=== PATIENT | male | born 1965 | race African-American/Black ===

== ENCOUNTER 2017-08-30 12:04 | Emergency (ER) | payer MEDICAID ==
[~2017-08-30] VITALS: Ht 167.6 cm; Wt 71.7 kg
[~2017-08-30 12:04] MED LIST: BACTRIM DS 8001 TA1 PO; BENADRYL 25MG C25 MG PO; CHOLESTEROL MED PO; DICLOFENAC 50MG50 MG PO; HYDROCHLOROTHIA25 M1 PO; K + POTASSIUM20 MEQ PO; LISINOPRIL 20MG20 MG PO; LISINOPRIL HCTZ1 TAB PO; LOVASTATIN20 MG PO; MEDROL 4MG. DOSE4 MG PO; MOBIC7.5 MG PO; MOTRIN800 MG PO; Mobic7.5 MG PO; PREDNISONE 10MG10 MG PO; TOBREX OPTH SOLU5 ML OP; ULTRAM 50 MG TA50 MG PO; VISTARIL25 M1 PO; ZITHROMAX Z PA250 MG PO; [UNRECOGNIZED DRUG - REMARK] PO
--- OUTSIDE RECORDS SUMMARY | 2017-08-30 12:21 | External Medical Summary Rpt | CCD ---
Author Author , [facility] Organization [facility] Address Unknown Phone Care Team Providers Care Bit Tapper Name Role Phone A Jasmyne GRAJEDA MD PSC, A Unavailable Unavailable Jasmyne GRAJEDA MD PSC YOU BRO, YOU Unavailable Unavailable BRO YOU BRO, YOU Unavailable Unavailable BRO BEINEKE JESSICA, BEINEKE Unavailable Unavailable JESSICA VANNESA L, VANNESA L Unavailable Unavailable BESSON, BESSON Unavailable Unavailable CIRILO YOU MD, Unavailable Unavailable CIRILO YOU MD SUZIE MEAGAN, SUZIE Unavailable Unavailable MEAGAN JUANA ALAYNA, Unavailable Unavailable JUANA ALAYNA FALLIS MATTY, FALLIS Unavailable Unavailable MATTY FIELD AMB, FIELD AMB Unavailable Unavailable [facility], [facility] AM[facility] Unavailable Unavailable MUSE, M[facility] Unavailable Unavailable [facility] Un[facility] Un[facility] INC, [facility] Unavailable Unavailable HOSPITAL P, [facility], Unavailable Unavailable [facility] RADHA CORNELIUS MD, Unavailable Unavailable RADHA CORNELIUS MD [facility] Unavailable Unavailable IM[facility]ING [facility], [facility] KILPELA, KILPELA Unavailable Unavailable KILPELA JEA, KILPELA Unavailable Unavailable JEA KILPELA JEA, KILPELA Unavailable Unavailable [facility] PRICE SHARIFA, PRICE Unavailable Unavailable SHARIFA OLIVIA, OLIVIA Unavailable Unavailable OLIVIA BRYCE, OLIVIA BRYCE Unavailable Unavailable [facility] PAVEZ, PAVEZ Unavailable Unavailable [facility], Unavailable Unavailable [facility], Unavailable Unavailable [facility] SADEK MOH, SADEK MOH Unavailable Unavailable SCIFRES ANG, SCIFRES Unavailable Unavailable ANG SCIFRES ANG, SCIFRES Unavailable Unavailable ANG [facility] Unavailable Unavailable [facility], [facility] Unavailable Unavailable [facility], [facility] SOTINGEANU, Unavailable Unavailable SOTINGEANU SOTINGEANU JESSICA, Unavailable Unavailable SOTINGEANU JESSICA [facility] KIAN, Unavailable Unavailable KIAN MARIANNA TOBIAS, MARIANNA TOBIAS Unavailable Unavailable Rashaun Julian Unavailable Unavailable III Rashaun MARINO III MD Purpose Continuity of Care Document - 01-29-2013 through 2016 Problems Code Diagnosis DOS Provider Status [id number] PAIN IN 07-26-2017 [facility] [id number] PAIN IN 07-26-2017 [facility] G4733 OBSTRUCTIVE 07-07-2017 [facility] SLEEP HOME APNEA ADULT MEDICAL PEDIATRIC EQUIPME M1990 UNSPECIFIED 06-01-2017 A Jasmyne GRAJEDA MD [facility] OSTEOARTHRI TIS UNSPECIFIED SITE K76314 PAIN IN 04-21-2017 A Jasmyne GRAJEDA JOINTS OF PSC RIGHT HAND F43377 PAIN IN 04-21-2017 A Jasmyne GRAJEDA JOINTS KELSEY MARINO [facility] LEFT HAND Z6825 BODY MASS 04-21-2017 A Jasmyne GRAJEDA INDEX BMI PSC 25.0-25.9 ADULT E785 HYPERLIPIDE 02-24-2017 [facility] OLIVIA PHYSICIAN UNSPECIFIED GROUP I10 ESSENTIAL 02-24-2017 [facility] PRIMARY PHYSICIAN HYPERTENSIO GROUP N K219 GASTRO-ESOP 02-24-2017 [facility] H REFLUX PHYSICIAN DISEASE GROUP WITHOUT ESOPHAGITIS R0602 SHORTNESS 02-24-2017 [facility] OF BREATH PHYSICIAN GROUP R0683 SNORING 02-24-2017 [facility] R0789 OTHER CHEST 02-24-2017 [facility] PAIN PHYSICIAN GROUP R635 ABNORMAL 02-24-2017 [facility] WEIGHT GAIN PHYSICIAN GROUP Z8249 FAMILY HX 02-24-2017 [facility] ISCHEMIC PHYSICIAN HRT DZ OTH GROUP DZ CIRC SYSTEM R079 CHEST PAIN 02-21-2017 [facility] R9431 ABNORMAL 02-09-2017 [facility] IOGRAM INC V79029 OTHER LONG 02-03-2017 [facility] P DRUG THERAPY N390 URINARY 01-18-2017 A Jasmyne GRAJEDA TRACT PSC INFECTION SITE NOT SPECIFIED M6530 TRIGGER 05-05-2016 A Jasmyne GRAJEDA FINGER PSC UNSPECIFIED FINGER R3915 URGENCY OF 04-22-2016 A Jasmyne GRAJEDA URINATION PSC R42 DIZZINESS 04-22-2016 A Jasmyne QUIROZ PSC GIDDINESS J040 ACUTE 01-13-2016 A Jasmyne GRAJEDA LARYNGITIS [facility] R358 OTHER 01-13-2016 A Jasmyne GRAJEDA POLYURIA [facility] J209 ACUTE 01-10-2016 [facility] UNSPECIFIED INC J40 BRONCHITIS 01-10-2016 [facility] SPE[facility] ACUTE OR CHRONIC E780 PURE 09-29-2015 [facility] TEROLEMIA 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 F43076 ENCOUNTER 09-29-2015 [facility] PREPROCEDUR AL CARIOVASCUL AR EXAM H524 PRESBYOPIA 09-25-2015 SCIFRES ANG B070 PLANTAR 09-18-2015 [facility] MATTY WART T92912 PAIN IN 09-18-2015 [facility] MATTY RIGHT FOOT I890 LYMPHEDEMA 08-21-2015 [facility] MATTY NOT ELSEWHERE CLASSIFIED M2570 OSTEOPHYTE 08-21-2015 [facility]PEC[facility]IED [facility] JOINT INC R936 ABNORMAL 08-21-2015 [facility] IMAGING OF LIMBS I79048 CELLULITIS 08-20-2015 [facility] OF RIGHT PHYSICIANS, TOE PLLC R51749R UNS OPEN 08-20-2015 [facility] WOUND UNS PHYSICIANS, TOES PLLC W/DAMAGE NAIL INITIAL 4019 UNSPECIFIED 06-16-2015 [facility]SSENTIAL [facility] HYPERTENSIO INC N 4659 ACUTE URIS 06-16-2015 [facility]YSICIANS, UNSPECIFIED PLLC SITE 2113 BENIGN 03-12-2015 [place] [facility] 2352 NEOPLASM 03-12-2015 [facility] BEHAVIOR INC STOMACH INTEST&RECT 25419 OTHER 03-12-2015 [facility] DISORDER OF INTESTINES V7651 SPECIAL 03-12-2015 [facility] MALIGNANT NEOPLASMS COLON 60645 OSTEOARTHRO 02-04-2015 [facility] S[facility] UNSPEC MEDICAL WHETHER IMAGING ASS GEN/LOC LOWER LEG 08980 UNSPECIFIED 02-04-2015 [facility] ARTHROPATHY INC , LOWER LEG 93770 PAIN IN 02-04-2015 [facility] JOINT, MEDICAL LOWER LEG IMAGING ASS 24637 OTHER 12-29-2014 [facility] DISORDERS [facility] SYNOVIUM INC TENDON AND BURSA OTHER 7295 PAIN IN 12-29-2014 [facility] SOFT MEDICAL TISSUES OF IMAGING ASS LIMB 95855 CHEST PAIN 08-19-2014 [facility] UNSPECIFIED MEDICAL IMAGING ASS 64654 OTHER CHEST 08-19-2014 [facility] PH[facility] V148 PERSONAL 08-19-2014 [facility] ALLERGY [facility] P SPEC MEDICINAL AGTS 9597 INJURY 03-04-2014 [facility] AM[facility] OTHER&UNSPE CIFIED KNEE LEG ANKLE&FOOT 7354 OTHER 02-14-2014 [facility] 7812 ABNORMALITY 02-14-2014 [facility] OF GA[facility] HOME MEDICAL EQUIPME 69414 TRIGGER 02-08-2014 KILPEDOMINIQUE ALEJANDRAA FINGER 2724 OTHER AND 02-05-2014 [facility]ELD AMB UNSPECIFIED HYPERLIPIDE OLIVIA 76068 OTHER 02-05-2014 [facility] AM[facility] CONGENITAL DEFORMITY OF FEET OTHER 401.9 401.9 12-11-[address] [facility] 718.34 718.34 12-11-2013 [facility] RECUR [facility] [place] [address] RECURRENT 12-11-2013 [facility] DISLOCATION [facility] OF HAND INC JOINT 13924 SPRAIN AND 12-11-2013 YOU BRO STRAIN OF INTERPHALAN GEAL OF HAND 462 462 ACUTE 09-21-2013 [facility] PHARYNGITIS [facility] 729.5 729.5 PAIN 01-29-2013 [facility] IN LIMB [facility] H57.12 OCULAR PAIN, LEFT EYE M77.9 ENTHESOPATH Y, UNSPECIFIED R07.89 OTHER CHEST PAIN R07.9 CHEST PAIN, UNSPECIFIED Allergies, Adverse Reactions, Alerts Type Drug Allergy Adverse Reaction to Substance Substance Reaction Severity Codeine Unknown Unknown Medications Na ND Rx Da Fi Fi Am Da Di Ph RX Ph St me C No te ll ll ou ys ag ar # ys at rm s nt no ma ic us Or Da si cy ia de te s n re d LO 54 09 10 30 30 00 [place] Ac VA 45 -0 -0 .0 00 L- ti ST 80 9- 6- 00 07 MA ve AT 93 20 20 47 RT IN 71 17 17 60 6 68 PH 20 AR MA MG CY TA #5 BL 91 ET NA 42 09 10 60 30 00 [place] Ac KS 49 -1 -0 .0 00 L- ti OX 40 3- 6- 00 07 MA ve EN 40 20 20 49 RT 00 17 17 97 SO 1 04 PH DI AR UM MA CY DS #5 55 91 0 MG TA B LO 68 09 10 30 30 00 WA Ac SA 18 -1 -0 .0 00 L- ti RT 00 3- 6- 00 07 MA ve AN 21 20 20 48 RT -H [address] 9 66 PH Z AR 10 MA 0- CY 25 #5 MG 91 TA B ME 54 09 09 30 30 00 WA Ac LO 45 -0 -2 .0 00 L- ti XI 80 2- 9- 00 07 MA ve CA 96 20 20 50 RT M 41 17 17 31 15 6 88 PH AR MG MA CY TA BL #5 ET 91 OM 60 08 09 30 30 00 WA Ac EP 50 -2 -2 .0 00 L- ti RA 50 6- 2- 00 07 MA ve ZO 14 20 20 50 RT LE 60 17 17 [address] AR MA 40 CY MG #5 91 CA PS UL E LO 68 08 09 30 30 00 WI Ac SA 18 -1 -0 .0 00 L- ti RT 00 1- 8- 00 07 MA ve AN 21 20 20 48 RT -H [address] 9 66 PH Z AR 10 MA 0- CY 25 #5 MG 91 TA B LO 54 08 09 30 30 00 WI Ac VA 45 -1 -0 .0 00 L- ti ST 80 1- 8- 07 MA ve AT 93 20 20 47 RT IN 71 17 17 60 6 68 PH 20 AR MA MG CY TA #5 BL 91 ET ME 54 08 09 30 30 00 WI Ac LO 45 -0 -0 .0 00 L- ti XI 80 9- 1- 00 07 MA ve CA 96 20 20 50 RT M 41 17 17 31 15 6 88 PH AR MG MA CY TA BL #5 ET 91 DI 00 08 09 60 30 00 WI Ac CL 37 -0 -0 .0 00 L- ti OF 82 5- 1- 00 07 MA ve EN 47 20 20 49 RT AC 40 17 17 24 1 78 PH PO AR T MA 50 CY MG #5 91 TA BL ET OM 60 07 08 30 30 00 WI Ac EP 50 -2 -1 .0 00 L- ti RA 50 6- 8- 00 07 MA ve ZO 14 20 20 50 RT LE 60 17 17 [address] AR MA 40 CY MG #5 91 CA PS UL E NA 42 07 08 60 30 00 WI Ac KS 49 -1 -1 .0 00 L- ti OX 40 9- 1- 00 07 MA ve EN 40 20 20 49 RT 00 17 17 97 SO 1 04 PH DI AR UM MA CY DS #5 55 91 0 MG TA B LO 54 07 08 30 30 00 WA Ac VA 45 -1 -0 .0 00 L- ti ST 80 1- 4- 00 07 MA ve AT 93 20 20 47 RT IN 71 17 17 60 6 68 PH 20 AR MA MG CY TA #5 BL 91 ET LO 68 07 30 30 00 WA Ac SA 18 -1 -0 .0 00 L- ti RT 00 1- 4- 00 07 MA ve AN 21 20 20 48 RT -H [address] 9 66 PH Z AR 10 MA 0- CY 25 #5 MG 91 TA B OM 60 06 30 30 00 WI Ac EP 50 -2 -2 .0 00 L- ti RA 50 8- 1- 00 07 MA ve ZO 14 20 20 47 RT LE 60 17 [address] AR MA 40 CY MG #5 91 CA PS UL E LO 68 06 30 30 00 WI Ac SA 18 -1 -0 .0 00 L- ti RT 00 2- 7- 00 07 MA ve AN 21 20 20 48 RT -H [address] 9 66 PH Z AR 10 MA 0- CY 25 #5 MG 91 TA B LO 54 06 30 30 00 WI Ac VA 45 -0 -0 .0 00 L- ti ST 80 9- 7- 00 07 MA ve AT 93 20 20 47 RT IN 71 17 17 60 0 68 PH 20 AR MA MG CY TA #5 BL 91 ET DI 00 06 30 00 WI Ac CL 37 -0 -0 .0 00 L- ti OF 82 8- 7- 00 07 MA ve EN 47 20 20 49 RT AC 40 17 17 24 1 78 PH PO AR T MA 50 CY MG #5 91 TA BL ET OM 60 05 30 30 00 WI Ac EP 50 -2 -2 .0 00 L- ti RA 50 6- 3- 00 07 MA ve ZO 14 20 20 47 RT LE 60 17 [address] AR MA 40 CY MG #5 91 CA PS UL E LO 68 05 30 30 00 [place] Ac VA 18 -1 -0 .0 00 L- ti ST 00 2- 9- 00 07 MA ve AT 46 20 20 47 RT IN 80 17 17 60 7 68 PH 20 AR MA MG CY TA #5 BL 91 ET LO 68 05 30 30 00 WI Ac SA 18 -1 -0 .0 00 L- ti RT 00 2- 9- 00 07 MA ve AN 21 20 20 48 RT -H [address] 9 66 PH Z AR 10 MA 0- CY 25 #5 MG 91 TA B OM 60 04 05 30 30 00 WA Ac EP 50 -2 -2 .0 00 L- ti RA 50 9- 6- 00 07 MA ve ZO 14 20 20 47 RT LE 60 17 [address] AR MA 40 CY MG #5 91 CA PS UL E LO 68 04 05 30 30 00 WI Ac SA 18 -1 -1 .0 00 L- ti RT 00 3- 2- 00 07 MA ve AN 21 20 20 48 RT -H [address] 9 66 PH Z AR 10 MA 0- CY 25 #5 MG 91 TA B LO 54 04 05 30 30 00 WI Ac VA 45 -1 -0 .0 00 L- ti ST 80 1- 5- 07 MA ve AT 93 20 20 47 RT IN 71 17 17 60 0 68 PH 20 AR MA MG CY TA #5 BL 91 ET LO 00 03 04 30 30 00 WI Ac SA 78 -2 -2 .0 00 L- ti RT 15 9 07 MA ve AN 20 20 20 47 RT -H [address] 64 PH Z AR 10 MA 0- CY 12 .5 #5 91 MG TA B OM 60 03 04 30 30 00 WI Ac EP 50 -2 -2 .0 00 L- ti RA 50 9 1- 00 07 MA ve ZO 14 20 20 47 RT LE 60 17 [address] AR MA 40 CY MG #5 91 CA PS UL E LO 54 03 04 30 30 00 WI Ac VA 45 -1 -0 .0 00 L- ti ST 80 3 7- 00 07 MA ve AT 93 20 20 47 RT IN 71 17 17 60 0 68 PH 20 AR MA MG CY TA #5 BL 91 ET LI 54 03 04 30 30 00 WI Ac SI 45 -1 -0 .0 00 L- ti NO 80 3 7- 00 07 MA ve KS 99 20 20 47 RT IL 61 17 17 59 0 06 PH 20 AR MA MG CY TA #5 BL 91 ET DORANTES 65 03 03 20 10 00 WI Ac LF 86 -0 -3 .0 00 L- ti AM 20 3- 1- 00 07 MA ve ET 42 20 20 47 RT HO 00 17 17 42 XA 5 04 PH ZO AR LE MA -T CY MP #5 DS 91 TA BL ET Vital Signs 01-28-2014 14:29 Name Value Interpretat Reference Comment ion Range BP 66 mm[Hg] Diastolic BP Systolic 102 mm[Hg] Heart 70 /min Rate/Pulse O2% 99 % Respiratory 18 /min Rate 12-11-2013 13:17 Name Value Interpretat Reference Comment ion Range BP 70 mm[Hg] Diastolic BP Systolic 111 mm[Hg] Heart 93 /min Rate/Pulse O2% 96 % Respiratory 16 /min Rate 09-21-2013 13:41 Name Value Interpretat Reference Comment ion Range BP 96 mm[Hg] Diastolic BP Systolic 142 mm[Hg] Heart 91 /min Rate/Pulse O2% 98 % Respiratory 20 /min Rate 01-29-2013 16:56 Name Value Interpretat Reference Comment ion Range Body 98.4 [degF] Temperature BP 73 mm[Hg] Diastolic BP Systolic 113 mm[Hg] Heart 91 /min Rate/Pulse O2% 99 % Respiratory 20 /min Rate 01-29-2013 16:30 Name Value Interpretat Reference Comment ion Range BP 65 mm[Hg] Diastolic BP Systolic 110 mm[Hg] Heart 99 /min Rate/Pulse O2% 95 % Respiratory 20 /min Rate Results Labs Lab Lab Date Result Refere Interp Status Commen Order Detail nces retati t Range on STREP SCREEN (RAPID) (09-21-2013 13:10) STREP NEGATIV complet SCREEN 013 E ed (RAPID) 13:10 Procedures Procedure DOS Code Location Performer Comment COLLECTIO 94347 Abelardo C MICHA N VENOUS 7 NICCI MARINO BLOOD PSC VENIPUNCT URE RADEX 88394 [facility] HAND 7 [facility] MINIMUM 3 INC INC VIEWS CONTINUOU E0601 M[facility]IAM PINEDA S 7 HOME HOME POSITIVE MEDICAL MEDICAL AIRWAY EQUIPME EQUIPME PRESSURE DEVICE CONTINUOU E0601 M[facility]IAM PINEDA S 7 HOME HOME POSITIVE MEDICAL MEDICAL AIRWAY EQUIPME EQUIPME PRESSURE DEVICE CONTINUOU E0601 MIRIAM PINEDA S 7 HOME HOME POSITIVE MEDICAL MEDICAL AIRWAY EQUIPME EQUIPME PRESSURE DEVICE CONTINUOU E0601 MIRIAM PINEDA S 7 HOME HOME POSITIVE MEDICAL MEDICAL AIRWAY EQUIPME EQUIPME PRESSURE DEVICE NASL A7034 M[facility]IAM PINEDA INTRFCE 7 HOME HOME POS ARWAY MEDICAL MEDICAL PRSS EQUIPME EQUIPME DEVC W/WO HEAD STRAP POLYSOM 91547 [facility] PAVEZ 6/>YRS 7 PHYSICIAN SLEEP 4/> S GROUP ADDL MARGE ATTND CV STRS 29004 [facility] TST 7 [facility] XERS&/OR INC INC RX CONT ECG TRCG ONLY ECHO 97904 [facility] TTHRC R-T 7 [facility] 2D INC INC W/WOM-MOD E COMPL SPEC&COLR D MYOCARDIA 77898 [facility] L SPECT 7 [facility] H[facility] MULTIPLE INC INC STUDIES UNCLASSIF J3490 [facility] IED DRUGS 7 [facility] INC INC LIPID 53755 [facility] PANEL 7 [facility] [place] [address] [facility] FREE 7 [facility] [place] [address] [facility] THYROID 7 [facility] STIMULATI INC INC NG HORMONE TSH COLLECTIO 98791 [facility] N VENOUS 7 [facility] BLOOD INC INC VENIPUNCT URE BASIC 02394 [facility] METABOLIC 7 [facility] PANEL INC INC CALCIUM TOTAL HEPATIC 12856 [facility] FUNCTION 7 [facility] PANEL INC INC ECG 88332 [facility] ROUTINE 7 [facility] ECG INC INC W/LEAST 12 LDS TRCG ONLY W/O I&R ECG 79781 [facility] ROUTINE 7 [facility] ECG INC INC W/LEAST 12 LDS TRCG ONLY W/O I&R COMPREHEN 03569 [facility] SIVE 7 [facility] METABOLIC INC INC PANEL ECG 94004 MAR[facility] COTA ROUTINE 7 [facility] W/LEAST P 12 LDS I&R ONLY CREATINE 70830 [facility] KINASE 7 [facility] H[facility] TOTAL INC INC CREATINE 16980 [facility] KINASE MB 7 [facility] [place] [address] [facility] TROPONIN 7 [facility] QUANTITAT INC INC KURT BLOOD 53554 [facility] COUNT 7 [facility] COMPLETE INC INC AUTO&AUTO DIFRNTL WBC RADIOLOGI 76237 [facility] C EXAM 7 [facility] CHEST 2 INC INC VIEWS FRONTAL&L ATERAL SUSCEPTIB 14636 [facility] LTY STDY 7 [facility] ANTIMICRB INC INC IAL MICRO/AGA R DILUTJ URNLS DIP 14002 [facility] 7 [facility] STICK/TAB INC INC LET RGNT AUTO W/O MICROSCOP Y CULTURE 39177 [facility] BACTERIAL 7 [facility] INC INC QUANTTATI VE COLONY COUNT URINE CULTURE 42213 [facility] BCT 7 [facility] ISOL&PRSM INC INC PTV ID ISOLATE EA URINE URINLS 00198 A C KILPELA DIP 6 NICCI MARINO JEA STICK/TAB PSC LET REAGNT NON-AUTO MICRSCPY LIPID 71029 A Jasmyne BAKER BRYCE PANEL 6 NICCI MARINO PSC HEMOGLOBI 83815 A Jasmyne BAKER BRYCE N 6 NICCI MARINO GLYCOSYLA PSC LORIE A1C COLLECTIO 20647 A Jasmyne WU N VENOUS 6 NICCI MRAINO BLOOD PSC VENIPUNCT URE BLOOD 77705 A Jasmyne BAKER BRYCE COUNT 5 NICCI MARINO COMPLETE PSC AUTO&AUTO DIFRNTL WBC COMPREHEN 15415 [facility] 5 DIAGNOSTI DIAGNOSTI METABOLIC CS CS PANEL OPHTH 01445 [facility] 5 ANG ANG XM&EVAL COMPRHNSV ESTAB PT 1/> DESTRUCTI 54716 [facility] SUZIE ON BENIGN 5 MATTY MEAGAN LESIONS 15/> DESTRUCTI 82624 [facility] SUZIE ON BENIGN 5 MATTY MEAGAN LESIONS 15/> RADEX 10334 [facility] FOOT 5 [facility] COMPLETE INC INC MINIMUM 3 [place] [address] [facility] STREPTOCO 5 [facility] CCUS INC INC GROUP A CUL BACT 98780 [facility] XCPT 5 [facility] URINE INC INC BLOOD/[place] [address] [facility] 5 [facility] SHARIFA PATHOLOGY GROSS&ELLEN ROSCOPIC EXAM COLONOSCO 08724 [facility] PY 5 [facility] W/BIOPSY INC INC SINGLE/MU LTIPLE RADIOLOGI 30002 [facility] JUANA C 5 MEDICAL ALAYNA EXAMINATI IMAGING ON KNEE 3 ASS VIEWS RADEX 86086 [facility] J[facility] HAND 5 MEDICAL ALAYNA MINIMUM 3 IMAGING VIEWS ASS BLOOD 79776 [facility] COUNT 4 [facility] COMPLETE INC INC AUTO&AUTO DIFRNTL WBC RADIOLOGI 54729 [facility] BEINEKE C EXAM 4 MEDICAL JESSICA CHEST 2 IMAGING VIEWS ASS FRONTAL&[place] [address] [facility] TROPONIN 4 [facility] QUANTITAT INC INC KURT COMPREHEN 27787 [facility] B[facility] SIVE 4 [facility] METABOLIC INC INC PANEL ECG 72011 [facility] ROUTINE 4 [facility] ECG INC INC W/LEAST 12 LDS TRCG ONLY W/O I&R ECG 76476 [facility] ROUTINE 4 LUCY ECG EMERGENCY W/LEAST PHYS 12 LDS I&R ONLY CANE INCL E0100 MIRIAM CORLEYRELL CANES 4 HOME HOME ALL MEDICAL MEDICAL MATERIAL EQUIPME EQUIPME ADJUSTBLE /FIX W/TIP RADEX 96460 [facility] HAND 4 [facility] MINIMUM 3 INC INC VIEWS Encounters Encounter Start End Date Code Location Performer Type Date [facility] MARIAM Long 7 7 [facility] OUTPATIEN INC T OFFICE 38535 A C MICHA OUTPATIEN 7 7 NICCI MARINO T VISIT PSC 15 MINUTES OFFICE 83643 A C MARIAELENA OUTPATIEN 7 7 NICCI MARINO T VISIT PSC 15 MINUTES OFFICE 66586 A Jasmyne FERRELL OUTMARYCRUZ 7 7 NICCI MARINO T VISIT PSC 15 MINUTES OFFICE 56322 A Jasmyne BAKER OUTPALEN 7 7 NICCI MARINO T VISIT PSC 15 MINUTES OFFICE 52459 A C OLIVIA OUTPATIEN 7 7 NICCI MARINO T VISIT PSC 15 MINUTES OFFICE 72815 [facility] SAL GUTIERREZ 7 7 PHYSICIAN A T VISIT GROUP 25 MINUTES HOSPITAL [facility] - 7 7 [facility] OUTPATIEN INC T [facility]OSPITAL [facility] - 7 7 [facility] OUTPATIEN INC T [facility]OSPITAL [facility] - 7 7 [facility] OUTPATIEN INC T EMERGENCY 79299 [facility] 7 7 MEM [facility] DEPARTMEN INC T VISIT MODERATE SEVERITY HOSPITAL [facility] - 7 7 [facility] OUTPATIEN INC T EMERGENCY 59012 JO[facility] REYNOLDS DEPT 7 7 PHYSICIAN U VISIT S, [facility] HIGH SEVERITY& THREAT FUNCJ OFFICE 04562 A Jasmyne GUTIERREZ 7 7 NICCI MARINO T VISIT PSC 15 MINUTES HOSPITAL [facility] - 7 7 [facility] OUTPATIEN INC T OFFICE 21811 MARIAM GUTIERREZ 7 7 MEM HOS[facility] T VISIT 5 INC MINUTES OFFICE 74541 A C MARIAELENA OUTPATIEN 6 6 NICCI MARTINO T VISIT PSC 15 MINUTES OFFICE 65579 A C MARIAELENA OUTPATIALONDRA 6 6 NICCI MARTINO T VISIT PSC 15 MINUTES OFFICE 23842 A C OLIVIA WU OUTPATIEN 6 6 NICCI MARINO T VISIT PSC 25 MINUTES EMERGENCY 83072 [facility] 6 6 [facility] DEPARTMEN INC T VISIT LIMITED/M INOR PROB EMERGENCY 61901 JOSE YANCEY [facility] 6 6 PHYSICIAN DEPARTMEN S, [facility] T VISIT MODERATE SEVERITY HOSPITAL MAR[facility] - 6 6 [facility] OUTPATIEN INC T OFFICE 60546 A C OLIVIA BRYCE OUTPATIEN 5 5 NICCI MARINO T VISIT PSC 25 MINUTES OFFICE 33877 LORI LARSEN OUTPATIEN 5 5 MATTY MEAGAN T NEW 30 MINUTES HOSPITAL [facility] - 5 5 [facility] OUTPATIEN INC T EMERGENCY 24965 JOSE REYNOLDS 5 5 PHYSICIAN [facility], [facility] T VISIT MODERATE SEVERITY EMERGENCY 98269 [facility] 5 5 MEM [facility] DEPARTMEN [facility] T VISIT LOW/MODER SEVERITY HOSPITAL [facility] - 5 5 [facility] OUTPATIEN [facility] T EMERGENCY 18696 JOSE Huffman 5 5 PHYSICIAN [facility], [facility] T VISIT MODERATE SEVERITY HOSPITAL MRAIAM - 5 5 [facility] OUTPATIEN INC T HOSPITAL [facility] - 5 5 [facility] OUTPATIEN [facility] OFFICE 45366 Abelardo WU OUTPATIEN 5 5 NICCI MARINO T VISIT PSC 25 MINUTES HOSPITAL [facility] - 5 5 [facility] OUTPATIEN INC T EMERGENCY 82094 [facility] 5 5 [facility] LOW/MODER SEVERITY EMERGENCY 47849 [facility] 4 4 [facility] T VISIT MODERATE SEVERITY [facility]OSP[facility] - 4 4 [facility] T EMERGENCY 25377 [facility] DEPT 4 4 LUCY VISIT EMERGENCY HIGH PHYS SEVERITY& THREAT FUN OFFICE 35916 FIELD AMB FIELD AMB OUTPATIEN 4 4 T VISIT 15 MINUTES OFFICE 08803 KILPELA KILPELA OUTPATIEN 4 4 GUNNER ALJEANDRAAbelardo T VISIT 10 MINUTES OFFICE 30039 FIELD AMB FIELD AMB OUTPATIEN 4 4 T NEW 45 MINUTES Emergency GIO YOU MD (ER) 4 13:38 4 14:29 [facility] EMERGENCY 32409 BANNER 4 4 [facility] T VISIT MODERATE SEVERITY HOSPITAL MARIAM - 4 4 [facility] OUTPATIEN INC T EMERGENCY 91511 MARIAM 4 4 [facility] DEPARTMEN INC T VISIT LOW/MODER SEVERITY Emergency GIO Julian (ER) 3 13:09 3 13:42 [facility] Rashaun Mello Emergency GIO CORNELIUS MD (ER) 3 15:52 3 17:00 [facility]
--- OUTSIDE RECORDS SUMMARY | 2017-08-30 12:21 | External Medical Summary Rpt | CCD ---
Author Author , [facility] Organization [facility] Address Unknown Phone Care Team Providers Care Security Checker Name Role Phone A Jasmyne GRAJEDA MD [...] Unavailable Unavailable INC, [facility] Unavailable Unavailable HOSPITAL P, [facility], Unavailable Unavailable [facility] RADHA CORNELIUS MD, Unavailable Unavailable RADHA CORNELIUS MD [facility] Unavailable Unavailable [facility], [facility] KILPELA, KILPELA Unavailable Unavailable KILPELA JEA, KILPELA Unavailable Unavailable JEA KILPELA JEA, KILPELA Unavailable Unavailable [facility] PRICE SHARIFA, PRICE Unavailable Unavailable SHARIFA OLIVIA, OLIVIA Unavailable Unavailable OLIVIA BRYCE, OLIVIA BRYCE Unavailable Unavailable [facility], [facility] [...] SOTINGEANU SOTINGEANU JESSICA, Unavailable Unavailable SOTINGEANU JESSICA [facility] Unavailable Unavailable [facility], [facility] KIAN, Unavailable Unavailable KIAN MARIANNA TOBIAS, MARIANNA TOBIAS Unavailable Unavailable Rashaun Julian Unavailable Unavailable III Rashaun MARINO III MD Purpose Continuity of Care Document - 01-29-2013 through 2016 Problems Code Diagnosis DOS Provider Status [id number] PAIN IN 07-26-2017 [facility] [id number] PAIN IN 07-26-2017 [facility] G4733 OBSTRUCTIVE 07-07-2017 [facility] SLEEP HOME APNEA ADULT MEDICAL PEDIATRIC EQUIPME M1990 UNSPECIFIED 06-01-2017 A Jasmyne GRAJEDA MD [facility] OSTEOARTHRI TIS UNSPECIFIED SITE Y86024 PAIN IN 04-21-2017 A Jasmyne GRAJEDA JOINTS OF PSC RIGHT HAND P34886 PAIN IN 04-21-2017 A Jasmyne GRAJEDA JOINTS KELSEY MARINO [facility] LEFT HAND Z6825 BODY MASS 04-21-2017 A Jasmyne GRAJEDA INDEX BMI PSC 25.0-25.9 ADULT E785 HYPERLIPIDE 02-24-2017 [facility] OLIVIA PHYSICIAN UNSPECIFIED GROUP I10 ESSENTIAL 02-24-2017 [facility] PRIMARY PHYSICIAN HYPERTENSIO GROUP N K219 GASTRO-ESOP 02-24-2017 [facility] H REFLUX PHYSICIAN DISEASE GROUP WITHOUT ESOPHAGITIS R0602 SHORTNESS 02-24-2017 [facility] OF BREATH PHYSICIAN GROUP R0683 SNORING 02-24-2017 [facility] R0789 OTHER CHEST 02-24-2017 [facility] PAIN PHYSICIAN GROUP R635 ABNORMAL 02-24-2017 [facility] WEIGHT GAIN PHYSICIAN GROUP Z8249 FAMILY HX 02-24-2017 [facility] ISCHEMIC PHYSICIAN HRT DZ OTH GROUP DZ CIRC SYSTEM R079 CHEST PAIN 02-21-2017 [facility] R9431 ABNORMAL 02-09-2017 [facility] ELECTROCARD [facility] IOGRAM INC G67717 OTHER LONG 02-03-2017 [facility] P DRUG THERAPY N390 URINARY 01-18-2017 A Jasmyne GRAJEDA TRACT PSC INFECTION SITE NOT SPECIFIED M6530 TRIGGER 05-05-2016 A Jasmyne GRAJEDA FINGER PSC UNSPECIFIED FINGER R3915 URGENCY OF 04-22-2016 A Jasmyne GRAJEDA URINATION PSC R42 DIZZINESS 04-22-2016 A Jasmyne QUIROZ PSC GIDDINESS J040 ACUTE 01-13-2016 A Jasmyne GRAJEDA LARYNGITIS [facility] R358 OTHER 01-13-2016 A Jasmyne GRAJEDA POLYURIA [facility] J209 ACUTE 01-10-2016 [facility]ONCHITIS [facility] UNSPECIFIED INC J40 BRONCHITIS 01-10-2016 [facility] NOT PHYSICIANS, SPECIFIED PLLC ACUTE OR CHRONIC E780 PURE 09-29-2015 [facility]PERCHOLES [facility]ST[facility] TEROLEMIA 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 N58041 ENCOUNTER 09-29-2015 [facility] FOR [facility] PREPROCEDUR AL CARIOVASCUL AR EXAM H524 PRESBYOPIA 09-25-2015 [facility] ANG B070 PLANTAR 09-18-2015 [facility] M[facility] WART Z82893 PAIN IN 09-18-2015 [facility] RIGHT FOOT I890 LYMPHEDEMA 08-21-2015 [facility] MATTY NOT ELSEWHERE CLASSIFIED M2570 OSTEOPHYTE 08-21-2015 [facility]NSPECIFIED [facility] JOINT INC R936 ABNORMAL 08-21-2015 [place] [facility] IM[facility]ING ASS IMAGING OF LIMBS N28383 CELLULITIS 08-20-2015 [facility] OF RIGHT PHYSICIANS, TOE PLLC [id number] UNS OPEN 08-20-2015 [facility] WOUND UNS PHYSICIANS, TOES PLLC W/DAMAGE NAIL INITIAL 4019 UNSPECIFIED 06-16-2015 [facility] ESSENTIAL [facility] HYPERTENSIO INC N 4659 ACUTE URIS 06-16-2015 [facility] OF PHYSICIANS, UNSPECIFIED PLLC SITE 2113 BENIGN 03-12-2015 [facility] NE[facility]M OF SERV COLON [facility] 2352 NEOPLASM 03-12-2015 [facility] BEHAVIOR INC STOMACH INTEST&RECT 09891 OTHER 03-12-2015 [facility] DISORDER OF INTESTINES V7651 SPECIAL 03-12-2015 [place] [facility] MALIGNANT NEOPLASMS COLON 18928 OSTEOARTHRO 02-04-2015 [place] [facility] UNSPEC MEDICAL WHETHER IMAGING ASS GEN/LOC LOWER LEG 95767 UNSPECIFIED 02-04-2015 [facility] ARTHROPATHY INC , LOWER LEG 06338 PAIN IN 02-04-2015 [place] JOINT, MEDICAL LOWER LEG IMAGING ASS 98064 OTHER 12-29-2014 [facility] DISORDERS [facility] SYNOVIUM INC TENDON AND BURSA OTHER 7295 PAIN IN 12-29-2014 [place] SOFT MEDICAL TISSUES OF IMAGING ASS LIMB 76629 CHEST PAIN 08-19-2014 [place] UNSPECIFIED MEDICAL IMAGING ASS 63512 OTHER CHEST 08-19-2014 [facility] V148 PERSONAL 08-19-2014 [facility] HISTORY [facility] ALLERGY [facility] P SPEC MEDICINAL AGTS 9597 INJURY 03-04-2014 FIELD AMB OTHER&UNSPE CIFIED KNEE LEG ANKLE&FOOT 7354 OTHER 02-14-2014 [facility] MEDICAL EQUIPME 7812 ABNORMALITY 02-14-2014 [facility] OF GAIT HOME MEDICAL EQUIPME 76401 TRIGGER 02-08-2014 KILPEDOMINIQUE ALEJANDRAA FINGER 2724 OTHER AND 02-05-2014 FIELD AMB UNSPECIFIED HYPERLIPIDE OLIVIA 69021 OTHER 02-05-2014 [facility] AM[facility] CONGENITAL DEFORMITY OF FEET OTHER 401.9 401.9 12-11-2013 [place] HYPERTENSIO [facility] 718.34 718.34 12-11-2013 [place] [facility]UR [facility] [place] [address] RECURRENT 12-11-2013 [facility] DISLOCATION [facility] OF HAND INC JOINT 93465 SPRAIN AND 12-11-2013 [facility]O STRAIN OF INTERPHALAN GEAL OF HAND 462 462 ACUTE 09-21-2013 [place] PHARYNGITIS [facility] 729.5 729.5 PAIN 01-29-2013 [place] IN LIMB [facility] H57.12 OCULAR PAIN, LEFT EYE M77.9 ENTHESOPATH [...] 09 10 60 30 00 [place] Ac TX 49 -1 -0 .0 00 L- ti [...] LO 68 08 09 30 30 00 ME Ac SA 18 -1 -0 .0 00 L- ti RT 00 1- 8- 00 07 MA ve AN 21 20 20 48 RT -H [address] 9 66 PH Z AR 10 MA 0- CY 25 #5 MG 91 TA B LO 54 08 09 30 30 00 ME Ac VA 45 -1 -0 .0 00 L- ti ST 80 1- 8- 07 MA ve AT 93 20 20 47 RT IN 71 17 17 60 6 68 PH 20 AR MA MG CY TA #5 BL 91 ET ME 54 08 09 30 30 00 ME Ac LO 45 -0 -0 .0 00 L- ti XI 80 9- 1- 00 07 MA ve CA 96 20 20 50 RT M 41 17 17 31 15 6 88 PH AR MG MA CY TA BL #5 ET 91 DI 00 08 09 60 30 00 ME Ac CL 37 -0 -0 .0 00 L- ti OF 82 5- 1- 00 07 MA ve EN 47 20 20 49 RT AC 40 17 17 24 1 78 PH PO AR T MA 50 CY MG #5 91 TA BL ET OM 60 07 08 30 30 00 ME Ac EP 50 -2 -1 .0 00 L- ti RA 50 6- 8- 00 07 MA ve ZO 14 20 20 50 RT LE 60 17 [address] AR MA 40 CY MG #5 91 CA PS UL E NA 42 07 08 60 30 00 ME Ac TX 49 -1 -1 .0 00 L- ti [...] B OM 60 06 30 30 00 ME Ac EP 50 -2 -2 .0 00 L- ti RA 50 8- 1- 00 07 MA ve ZO 14 20 20 47 RT LE 60 17 [address] AR MA 40 CY MG #5 91 CA PS UL E LO 68 06 30 30 00 ME Ac SA 18 -1 -0 .0 00 L- ti RT 00 2- 7- 00 07 MA ve AN 21 20 20 48 RT -H [address] 9 66 PH Z AR 10 MA 0- CY 25 #5 MG 91 TA B LO 54 06 30 30 00 ME Ac VA 45 -0 -0 .0 00 L- ti ST 80 9- 7- 00 07 MA ve AT 93 20 20 47 RT IN 71 17 17 60 0 68 PH 20 AR MA MG CY TA #5 BL 91 ET DI 00 06 30 00 ME Ac CL 37 -0 -0 .0 00 L- ti OF 82 8- 7- 00 07 MA ve EN 47 20 20 49 RT AC 40 17 17 24 1 78 PH PO AR T MA 50 CY MG #5 91 TA BL ET OM 60 05 30 30 00 ME Ac EP 50 -2 -2 .0 00 [...] ET LO 68 05 30 30 00 ME Ac SA 18 -1 -0 .0 00 [...] LO 68 04 05 30 30 00 ME Ac SA 18 -1 -1 .0 00 L- ti RT 00 3- 2- 00 07 MA ve AN 21 20 20 48 RT -H [address] 9 66 PH Z AR 10 MA 0- CY 25 #5 MG 91 TA B LO 54 04 05 30 30 00 ME Ac VA 45 -1 -0 .0 00 L- ti ST 80 1- 5- 07 MA ve AT 93 20 20 47 RT IN 71 17 17 60 0 68 PH 20 AR MA MG CY TA #5 BL 91 ET LO 00 03 04 30 30 00 ME Ac SA 78 -2 -2 .0 00 L- ti RT 15 9 07 MA ve AN 20 20 20 47 RT -H [address] 2 64 PH Z AR 10 MA 0- CY 12 .5 #5 91 MG TA B OM 60 03 04 30 30 00 ME Ac EP 50 -2 -2 .0 00 L- ti RA 50 9 1- 00 07 MA ve ZO 14 20 20 47 RT LE 60 17 [address] AR MA 40 CY MG #5 91 CA PS UL E LO 54 03 04 30 30 00 ME Ac VA 45 -1 -0 .0 00 L- ti ST 80 3 7- 00 07 MA ve AT 93 20 20 47 RT IN 71 17 17 60 0 68 PH 20 AR MA MG CY TA #5 BL 91 ET LI 54 03 04 30 30 00 ME Ac SI 45 -1 -0 .0 00 L- ti NO 80 3 7- 00 07 MA ve TX 99 20 20 47 RT IL 61 17 17 59 0 06 PH 20 AR MA MG CY TA #5 BL 91 ET DORANTES 65 03 03 20 10 00 ME Ac LF 86 -0 -3 .0 00 [...] Procedure DOS Code Location Performer Comment COLLECTIO 47913 Abelardo C MICHA N VENOUS 7 NICCI MARINO BLOOD PSC VENIPUNCT URE RADEX 60992 [facility] HAND 7 [facility] MEM [...] EQUIPME EQUIPME DEVC W/WO HEAD STRAP POLYSOM 42552 [facility] PAVEZ 6/>YRS 7 PHYSICIAN SLEEP 4/> S GROUP ADDL MARGE ATTND CV STRS 40519 [facility] TST 7 [facility] XERS&/OR INC INC RX CONT ECG TRCG ONLY ECHO 17867 [facility] TTHRC R-T 7 [facility] 2D INC INC W/WOM-MOD E COMPL SPEC&COLR D MYOCARDIA 39693 [facility] L SPECT 7 [facility] MULTIPLE INC INC STUDIES UNCLASSIF J3490 [facility] IED DRUGS 7 [facility] INC INC LIPID 46269 [facility] PANEL 7 [facility] [place] [address] [facility] FREE 7 [facility] [place] [address] [facility] THYROID 7 [facility] STIMULATI INC INC NG HORMONE TSH COLLECTIO 00932 [facility] N VENOUS 7 [facility] BLOOD INC INC VENIPUNCT URE BASIC 70689 [facility] METABOLIC 7 [facility] PANEL INC INC CALCIUM TOTAL HEPATIC 00411 [facility] FUNCTION 7 [facility] PANEL INC INC ECG 59496 [facility] ROUTINE 7 [facility] ECG INC INC W/LEAST 12 LDS TRCG ONLY W/O I&R ECG 69128 [facility] ROUTINE 7 [facility] ECG INC INC W/LEAST 12 LDS TRCG ONLY W/O I&R COMPREHEN 52394 [facility] SIVE 7 [facility] METABOLIC INC INC PANEL ECG 36151 [facility] COTA ROUTINE 7 [facility] W/LEAST P 12 LDS I&R ONLY CREATINE 98071 [facility] KINASE 7 [facility] TOTAL INC INC CREATINE 68411 [facility] KINASE MB 7 [facility] [place] [address] [facility] TROPONIN 7 [facility] QUANTITAT INC INC KURT BLOOD 55277 [facility] COUNT 7 [facility] COMPLETE INC INC AUTO&AUTO DIFRNTL WBC RADIOLOGI 07608 [facility] C EXAM 7 [facility] CHEST 2 INC INC VIEWS FRONTAL&L ATERAL SUSCEPTIB 89518 [facility] LTY STDY 7 [facility] ANTIMICRB INC INC IAL MICRO/AGA R DILUTJ URNLS DIP 46512 [facility] 7 [facility] STICK/TAB INC INC LET RGNT AUTO W/O MICROSCOP Y CULTURE 59064 [facility] BACTERIAL 7 [facility] INC INC QUANTTATI VE COLONY COUNT URINE CULTURE 55685 [facility] BCT 7 [facility] ISOL&PRSM INC INC PTV ID ISOLATE EA URINE URINLS 82424 A C KILPELA DIP 6 NICCI MARINO JEA STICK/TAB PSC LET REAGNT NON-AUTO MICRSCPY LIPID 17674 A Jasmyne BAKER BRYCE PANEL 6 NICCI MARINO PSC HEMOGLOBI 70561 A Jasmyne BAKER BRYCE N 6 NICCI MARINO GLYCOSYLA PSC LORIE A1C COLLECTIO 19860 A Jasmyne WU N VENOUS 6 NICCI [facility] BLOOD PSC VENIPUNCT URE BLOOD 38445 A Jasmyne BAKER BRYCE COUNT 5 NICCI MARINO COMPLETE PSC AUTO&AUTO DIFRNTL WBC COMPREHEN 06589 [facility] SIVE 5 DIAGNOSTI DIAGNOSTI METABOLIC CS CS PANEL OPHTH 87769 [facility] 5 ANG ANG XM&EVAL COMPRHNSV ESTAB PT 1/> DESTRUCTI 33267 [facility] SUZIE ON BENIGN 5 MATTY MEAGAN LESIONS 15/> DESTRUCTI 01033 [facility] SUZIE ON BENIGN 5 MATTY MEAGAN LESIONS 15/> RADEX 85161 [facility] FOOT 5 [facility] COMPLETE INC INC MINIMUM 3 [place] [address] [facility] STREPTOCO 5 [facility] CCUS INC INC GROUP A CUL BACT 12136 [facility] XCPT 5 [facility] URINE INC INC BLOOD/[place] [address] [facility] 5 [facility] SHARIFA PATHOLOGY GROSS&ELLEN ROSCOPIC EXAM COLONOSCO 15248 [facility] PY 5 [facility] W/BIOPSY INC INC SINGLE/MU LTIPLE RADIOLOGI 47334 [place] JUANA C 5 MEDICAL ALAYNA EXAMINATI IMAGING ON KNEE 3 ASS VIEWS RADEX 78080 [place] [facility] HAND 5 MEDICAL ALAYNA MINIMUM 3 IMAGING VIEWS ASS BLOOD 65433 [facility] COUNT 4 [facility] COMPLETE INC INC AUTO&AUTO DIFRNTL WBC RADIOLOGI 54412 [place] BEINEKE C EXAM 4 MEDICAL JESSICA CHEST 2 IMAGING VIEWS ASS FRONTAL&[place] [address] [facility] B[facility] TROPONIN 4 [facility] QUANTITAT INC INC KURT COMPREHEN 97770 [facility] SIVE 4 [facility] METABOLIC INC INC PANEL ECG 84715 [facility] ROUTINE 4 [facility] ECG INC INC W/LEAST 12 LDS TRCG ONLY W/O I&R ECG 74964 [facility] ROUTINE 4 LUCY ECG EMERGENCY W/LEAST PHYS 12 LDS I&R ONLY CANE INCL E0100 [facility] CORLEYRELL CANES 4 HOME HOME ALL MEDICAL MEDICAL MATERIAL EQUIPME EQUIPME ADJUSTBLE /FIX W/TIP RADEX 78564 [facility] HAND 4 [facility] MINIMUM 3 INC INC VIEWS Encounters Encounter Start End Date Code Location Performer Type Date [facility] Long 7 7 [facility] OUTPATIEN INC T OFFICE 16959 A C MICHA OUTPATIEN 7 7 NICCI MARINO T VISIT PSC 15 MINUTES OFFICE 12599 A C MARIAELENA OUTPATIEN 7 7 NICCI MARINO T VISIT PSC 15 MINUTES OFFICE 80168 A Jasmyne FERRELL OUTMARYCRUZ 7 7 NICCI [facility]INO T VISIT PSC 15 MINUTES OFFICE 71719 A Jasmyne BAKER OUTPALEN 7 7 NICCI [facility]INO T VISIT PSC 15 MINUTES OFFICE 71271 A C OLIVIA OUTPATIEN 7 7 NICCI MARINO T VISIT PSC 15 MINUTES OFFICE 30680 [facility] SAL GUTIERREZ 7 7 PHYSICIAN A T VISIT GROUP 25 MINUTES HOSPITAL [facility] - 7 7 [facility] OUTPATIEN INC T [facility] - 7 7 [facility] OUTPATIEN INC T [facility] - 7 7 [facility] OUTPATIEN INC T EMERGENCY 45448 [facility] 7 7 [facility] DEPARTMEN INC T VISIT MODERATE SEVERITY HOSPITAL [facility] - 7 7 [facility] OUTPATIEN INC T EMERGENCY 33674 [facility] REYNOLDS DEPT 7 7 PHYSICIAN U VISIT S, [facility] HIGH SEVERITY& THREAT FUNCJ OFFICE 07602 A Jasmyne GUTIERREZ 7 7 NICCI MARINO T VISIT PSC 15 MINUTES HOSPITAL [facility] - 7 7 [facility] OUTPATIEN INC T OFFICE 11334 [facility] GUTIERREZ 7 7 [facility] T VISIT 5 INC MINUTES OFFICE 75896 A C MARIAELENA OUTPATIEN 6 6 NICCI MARTINO T VISIT PSC 15 MINUTES OFFICE 89323 A C MARIAELENA OUTPATIALONDRA 6 6 NICCI MARTINO T VISIT PSC 15 MINUTES OFFICE 95966 A C OLIVIA WU OUTPATIEN 6 6 NICCI MARINO T VISIT PSC 25 MINUTES EMERGENCY 67842 [facility] 6 6 [facility] DEPARTMEN INC T VISIT LIMITED/M INOR PROB EMERGENCY 42676 JOSE YANCEY [facility] 6 6 PHYSICIAN DEPARTMEN S, [facility] T VISIT MODERATE SEVERITY HOSPITAL [facility] - 6 6 [facility] OUTPATIEN INC T OFFICE 96179 A C OLIVIA BRYCE OUTPATIEN 5 5 NICCI MARINO T VISIT PSC 25 MINUTES OFFICE 06076 LORI LARSEN OUTPATIEN 5 5 MATTY MEAGAN T NEW 30 MINUTES HOSPITAL [facility] - 5 5 [facility] OUTPATIEN INC T EMERGENCY 34707 JOSE REYNOLDS 5 5 PHYSICIAN [facility], [facility] T VISIT MODERATE SEVERITY EMERGENCY 00970 [facility] 5 5 [facility] DEPARTMEN [facility] T VISIT LOW/MODER SEVERITY HOSPITAL [facility] - 5 5 [facility] OUTPATIEN [facility] T EMERGENCY 50668 JOSE Huffman 5 5 PHYSICIAN [facility], [facility] T VISIT MODERATE SEVERITY HOSPITAL [facility] - 5 5 [facility] OUTPATIEN INC T HOSPITAL [facility] - 5 5 [facility] OUTPATIEN PENDING [facility]ALE TO [facility] OFFICE 93555 Abelardo WU OUTPATIEN 5 5 NICCI MARINO T VISIT PSC 25 MINUTES HOSPITAL [facility] - 5 5 [facility] OUTPATIEN INC T EMERGENCY 73945 [facility] 5 5 [facility] T VISIT LOW/MODER SEVERITY EMERGENCY 26776 [facility] 4 4 [facility] T VISIT MODERATE SEVERITY HOSPITAL [facility] - 4 4 [facility] OUTPATIEN INC T EMERGENCY 44458 [facility] DEPT 4 4 LUCY VISIT EMERGENCY HIGH PHYS SEVERITY& THREAT FUN OFFICE 53304 FIELD AMB FIELD AMB OUTPATIEN 4 4 T VISIT 15 MINUTES OFFICE 05203 KILPELA KILPELA OUTPATIEN 4 4 GUNNER ALEJANDRAAbelardo T VISIT 10 MINUTES OFFICE 36483 FIELD AMB FIELD AMB OUTPATIEN 4 4 T NEW 45 MINUTES Emergency GIO YOU MD (ER) 4 13:38 4 14:29 [facility] EMERGENCY 31916 [facility] 4 4 [facility] T VISIT MODERATE SEVERITY HOSPITAL [facility] - 4 4 [facility] OUTPATIEN INC T EMERGENCY 94975 [facility] 4 4 [facility] DEPARTMEN INC T VISIT LOW/MODER SEVERITY Emergency GIO Julian (ER) 3 13:09 3 13:42 [facility] Rashaun Mello Emergency GIO CORNELIUS MD (ER) 3 15:52 3 17:00 [facility]
--- OUTSIDE RECORDS SUMMARY | 2017-08-30 12:24 | External Medical Summary Rpt | CCD ---
Author Author , JEROMYKELLY Organization [facility] Address Unknown Phone [email or web address] Team Providers Care Courier Driver Name Role Phone A Jasmyne GRAJEDA MD PSC, Abelardo Unavailable Unavailable Jasmyne GRAJEDA MD PSC YOU BRO, YOU Unavailable Unavailable BRO YOU BRO, YOU Unavailable Unavailable BRO VANNESA L, VANNESA L Unavailable Unavailable BESSON, BESSON Unavailable Unavailable BESSON BRYCE, BESSON Unavailable Unavailable BRYCE BRUNSON, BRUNSON Unavailable Unavailable SUZIE MEAGAN, SUZIE Unavailable Unavailable MEAGAN JUANA ALAYNA, Unavailable Unavailable JUANA ALAYNA SUZANNE MARY, JAYLIN Unavailable Unavailable LINNEA MARY FALLIS MATTY, FALLIS Unavailable Unavailable MATTY FIELD AM[facility], FIELD AMB Unavailable Unavailable [facility], FI[facility] AMB Unavailable Unavailable MUSE, MUSE Unavailable Unavailable [facility] Unavailable Unavailable INC, [facility] Unavailable Unavailable H[facility]PITAL P, [facility] P [facility], [facility]available Unavailable [facility] Unavailable Unavailable [facility], [facility] KILPELA, KILPELA Unavailable Unavailable [...] [facility] Unavailable Unavailable [facility], [facility] Unavailable Unavailable [facility], [facility] SOTINGEANU, Unavailable Unavailable SOTINGEANU SOTINGEANU JESSICA, Unavailable Unavailable SOTINGEANU [facility] KIAN, Unavailable Unavailable KIAN MARIANNA TOBIAS, WELLS SHA Unavailable Unavailable Purpose Continuity of Care Document - 12-11-2013 through 2016 Problems Code Diagnosis DOS Provider Status [id number] PAIN IN 07-26-2017 [facility] [id number] PAIN IN 07-26-2017 [facility] G4733 OBSTRUCTIVE 07-07-2017 [facility]EP [facility] ADULT [facility] PEDIATRIC EQUIPME M1990 UNSPECIFIED 06-01-2017 A Jasmyne GRAJEDA MD [facility] OSTEOARTHRI TIS UNSPECIFIED SITE W87932 PAIN IN 04-21-2017 A Jasmyne GRAJEDA JOINTS OF PSC RIGHT HAND N77669 PAIN IN 04-21-2017 A Jasmyne GRAJEDA JOINTS KELSEY MARINO [facility] LEFT HAND Z6825 BODY MASS 04-21-2017 A Jasmyne GRAJEDA INDEX BMI [facility] 25.0-25.9 ADULT E785 HYPERLIPIDE 02-24-2017 [facility] OLIVIA PHYSICIAN UNSPECIFIED GROUP I10 ESSENTIAL 02-24-2017 [facility] PRIMARY PHYSICIAN HYPERTENSIO GROUP N K219 GASTRO-ESOP 02-24-2017 [facility] REFLUX PHYSICIAN DISEASE GROUP WITHOUT ESOPHAGITIS R0602 SHORTNESS 02-24-2017 [facility] OF BREATH PHYSICIAN GROUP R0683 SNORING 02-24-2017 [facility] R0789 OTHER CHEST 02-24-2017 [facility] PAIN PHYSICIAN GROUP R635 ABNORMAL 02-24-2017 [facility] WEIGHT GAIN PHYSICIAN GROUP Z8249 FAMILY HX 02-24-2017 [facility] ISCHEMIC PHYSICIAN HRT DZ OTH GROUP DZ CIRC SYSTEM R079 CHEST PAIN 02-21-2017 [facility] UNSPECIFIED [facility] INC R9431 ABNORMAL 02-09-2017 [facility] ELECTROCARD [facility] IOGRAM INC I57546 OTHER LONG 02-03-2017 [facility] P DRUG THERAPY N390 URINARY 01-18-2017 A Jasmyne GRAJEDA TRACT [facility] INFECTION SITE NOT SPECIFIED M6530 TRIGGER 05-05-2016 A Jasmyne GRAJEDA FINGER [facility] UNSPECIFIED FINGER R3915 URGENCY OF 04-22-2016 A Jasmyne GRAJEDA URINATION P[facility] R42 DIZZINESS 04-22-2016 A Jasmyne QUIROZ PSC GIDDINESS J040 ACUTE 01-13-2016 A Jasmyne GRAJEDA LARYNGITIS PSC R358 OTHER 01-13-2016 A Jasmyne GRAJEDA POLYURIA PSC J209 ACUTE 01-10-2016 [facility] BRONCHITIS [facility] UNSPECIFIED INC J40 BRONCHITIS 01-10-2016 [facility] PHYSICIANS, SPECIFIED PLLC ACUTE OR CHRONIC E780 PURE 09-29-2015 [facility]PERCHOLES [facility] TEROLEMIA 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 N30099 ENCOUNTER 09-29-2015 [facility] FOR [facility] PREPROCEDUR AL CARIOVASCUL AR EXAM H524 PRESBYOPIA 09-25-2015 SC[facility] ANG B070 PLANTAR 09-18-2015 [facility] MATTY WART N03574 PAIN IN 09-18-2015 [facility] MATTY RIGHT FOOT I890 LYMPHEDEMA 08-21-2015 FALLIS MATTY NOT ELSEWHERE CLASSIFIED M2570 OSTEOPHYTE 08-21-2015 [facility] UNSPECIFIED [facility] JOINT INC R936 ABNORMAL 08-21-2015 [facility] IMAGING OF LIMBS Z79666 CELLULITIS 08-20-2015 [facility] OF RIGHT PHYSICIANS, TOE PLLC H19885T UNS OPEN 08-20-2015 [facility] WOUND UNS PHYSICIANS, TOES PLLC W/DAMAGE NAIL INITIAL 4019 UNSPECIFIED 06-16-2015 [facility] ESSENTIAL [facility] HYPERTENSIO INC N 4659 ACUTE URIS 06-16-2015 [facility] OF PHYSICIANS, UNSPECIFIED PLLC SITE 2113 BENIGN 03-12-2015 [facility] 2352 NEOPLASM 03-12-2015 [facility] UNCERTAIN [facility] BEHAVIOR INC STOMACH INTEST&RECT 88556 OTHER 03-12-2015 [facility] DISORDER OF INTESTINES V7651 SPECIAL 03-12-2015 [facility]CREENING [facility] FOR [facility] MALIGNANT NEOPLASMS COLON 07861 OSTEOARTHRO 02-04-2015 [facility] UNSPEC MEDICAL WHETHER IMAGING ASS GEN/LOC LOWER LEG 36492 UNSPECIFIED 02-04-2015 [facility] ARTHROPATHY INC , LOWER LEG 92455 PAIN IN 02-04-2015 [facility] MEDICAL LOWER LEG IMAGING ASS 29337 OTHER 12-29-2014 [facility] DISORDERS [facility] SYNOVIUM INC TENDON AND BURSA OTHER 7295 PAIN IN 12-29-2014 [facility] SOFT MEDICAL TISSUES OF IMAGING ASS LIMB 38153 CHEST PAIN 08-19-2014 [facility]PEC[facility]ING [facility] 51210 OTHER CHEST 08-19-2014 [facility] PH[facility] V148 PERSONAL 08-19-2014 [facility] P SPEC MEDICINAL AGTS 9597 INJURY 03-04-2014 [facility] AMB OTHER&UNSPE CIFIED KNEE LEG ANKLE&FOOT 7354 OTHER 02-14-2014 [facility]MER [facility] E[facility] 7812 ABNORMALITY 02-14-2014 [facility] OF [facility] HOME MEDICAL EQUIPME 00899 TRIGGER 02-08-2014 MARIAELENA MARTINO FINGER 2724 OTHER AND 02-05-2014 [facility]ELD AMB UNSPECIFIED HYPERLIPIDE OLIVIA 54234 OTHER 02-05-2014 [facility] CONGENITAL DEFORMITY OF FEET OTHER 02751 RECURRENT 12-11-2013 [facility] DISLOCATION [facility] OF HAND INC JOINT 90823 SPRAIN AND 12-11-2013 AVELINO WARD STRAIN OF INTERPHALAN GEAL OF HAND Medications Na ND Rx Da Fi Fi [...] 09 10 60 30 00 [place] Ac TN 49 -1 -0 .0 00 L- ti [...] 91 CA PS UL E LO 54 08 09 30 30 00 WA Ac VA 45 -1 -0 .0 00 L- ti ST 80 1- 8- 00 07 MA ve AT 93 20 20 47 RT IN 71 17 17 60 6 68 PH 20 AR MA MG CY TA #5 BL 91 ET LO 68 08 09 30 30 00 WA Ac SA 18 -1 -0 .0 00 L- ti RT 00 1- 8- 00 07 MA ve AN 21 20 20 48 RT -H [address] 9 66 PH Z AR 10 MA 0- CY 25 #5 MG 91 TA B DI 00 08 09 60 30 00 WA Ac CL 37 -0 -0 .0 00 L- ti OF 82 5- 1- 00 07 MA ve EN 47 20 20 49 RT AC 40 17 17 24 1 78 PH PO AR T MA 50 CY MG #5 91 TA BL ET ME 54 08 09 30 30 00 WA Ac LO 45 -0 -0 .0 00 L- ti XI 80 9- 1- 00 07 MA ve CA 96 20 20 50 RT M 41 17 17 31 15 6 88 PH AR MG MA CY TA BL #5 ET 91 OM 60 07 08 30 30 00 WA Ac EP 50 -2 -1 .0 00 L- ti RA 50 6- 8- 00 07 MA ve ZO 14 20 20 50 RT LE 60 17 [address] AR MA 40 CY MG #5 91 CA PS UL E NA 42 07 08 60 30 00 WA Ac TN 49 -1 -1 .0 00 L- ti [...] #5 BL 91 ET LO 68 07 08 30 30 00 WA Ac SA 18 -1 -0 .0 00 L- ti RT 00 1- 4- 00 07 MA ve AN 21 20 20 48 RT -H [address] 9 66 PH Z AR 10 MA 0- CY 25 #5 MG 91 TA B OM 60 06 07 30 30 00 WA Ac EP 50 -2 -2 .0 00 L- ti RA 50 8- 1- 00 07 MA ve ZO 14 20 20 47 RT LE 60 17 [address] AR MA 40 CY MG #5 91 CA PS UL E DI 00 06 07 60 30 00 WA Ac CL 37 -0 -0 .0 00 L- ti OF 82 8- 7- 00 07 MA ve EN 47 20 20 49 RT AC 40 17 17 24 1 78 PH PO AR T MA 50 CY MG #5 91 TA BL ET LO 54 06 07 30 30 00 IA Ac VA 45 -0 -0 .0 00 L- ti ST 80 9- 7- 00 07 MA ve AT 93 20 20 47 RT IN 71 17 17 60 0 68 PH 20 AR MA MG CY TA #5 BL 91 ET LO 68 06 07 30 30 00 IA Ac SA 18 -1 -0 .0 00 L- ti RT 00 2- 7- 00 07 MA ve AN 21 20 20 48 RT -H [address] 9 66 PH Z AR 10 MA 0- CY 25 #5 MG 91 TA B OM 60 05 06 30 30 00 IA Ac EP 50 -2 -2 .0 00 L- ti RA 50 6- 3- 00 07 MA ve ZO 14 20 20 47 RT LE 60 17 [address] AR MA 40 CY MG #5 91 CA PS UL E LO 68 05 06 30 30 00 IA Ac VA 18 -1 -0 .0 00 L- ti ST 00 2- 9- 00 07 MA ve AT 46 20 20 47 RT IN 80 17 17 60 7 68 PH 20 AR MA MG CY TA #5 BL 91 ET LO 68 05 06 30 30 00 IA Ac SA 18 -1 -0 .0 00 L- ti RT 00 2- 9- 00 07 MA ve AN 21 20 20 48 RT -H [address] 9 66 PH Z AR 10 MA 0- CY 25 #5 MG 91 TA B OM 60 04 05 30 30 00 IA Ac EP 50 -2 -2 .0 00 L- ti RA 50 9- 6- 00 07 MA ve ZO 14 20 20 47 RT LE 60 17 [address] AR MA 40 CY MG #5 91 CA PS UL E LO 68 04 05 30 30 00 IA Ac SA 18 -1 -1 .0 00 L- ti RT 00 3- 2- 00 07 MA ve AN 21 20 20 48 RT -H [address] 9 66 PH Z AR 10 MA 0- CY 25 #5 MG 91 TA B LO 54 04 05 30 30 00 IA Ac VA 45 -1 -0 .0 00 L- ti ST 80 1- 5- 00 07 MA ve AT 93 20 20 47 RT IN 71 17 17 60 0 68 PH 20 AR MA MG CY TA #5 BL 91 ET LO 00 03 04 30 30 00 WA Ac SA 78 -2 -2 .0 00 L- ti RT 15 9- 1- 00 07 MA ve AN 20 20 20 47 RT -H [address] 2 64 PH Z AR 10 MA 0- CY 12 .5 #5 91 MG TA B OM 60 03 04 30 30 00 WA Ac EP 50 -2 -2 .0 00 L- ti RA 50 9- 1- 00 07 MA ve ZO 14 20 20 47 RT LE 60 17 [address] AR MA 40 CY MG #5 91 CA PS UL E LO 54 03 04 30 30 00 WA Ac VA 45 -1 -0 .0 00 L- ti ST 80 3- 7- 00 07 MA ve AT 93 20 20 47 RT IN 71 17 17 60 0 68 PH 20 AR MA MG CY TA #5 BL 91 ET LI 54 03 04 30 30 00 IA Ac SI 45 -1 -0 .0 00 L- ti NO 80 3- 7- 00 07 MA ve TN 99 20 20 47 RT IL 61 17 17 59 0 06 PH 20 AR MA MG CY TA #5 BL 91 ET DORANTES 65 03 03 20 10 00 IA Ac LF 86 -0 -3 .0 00 L- ti AM 20 3- 1- 00 07 MA ve ET 42 20 20 47 RT HO 00 17 17 42 XA 5 04 PH ZO AR LE MA -T CY MP #5 DS 91 TA BL ET Procedures Procedure DOS Code Location Performer Comment RADEX 99759 [facility] HAND 7 [facility] 3 [facility] INC VIEWS COLLECTIO 32003 Abelardo C MICHA N VENOUS 7 NICCI MARINO BLOOD PSC VENIPUNCT URE CONTINUOU E0601 M[facility]IAM MIRIAM S 7 HOME HOME POSITIVE MEDICAL MEDICAL AIRWAY EQUIPME EQUIPME PRESSURE DEVICE CONTINUOU E0601 MIRIAMFORTINO PINEDA S 7 HOME HOME POSITIVE MEDICAL [...] EQUIPME EQUIPME DEVC W/WO HEAD STRAP POLYSOM 35638 [facility] PAVEZ 6/>YRS 7 PHYSICIAN SLEEP 4/> S GROUP ADDL MARGE ATTND UNCLASSIF J3490 [facility] IED DRUGS 7 [facility] INC INC CV STRS 31606 [facility] TST 7 [facility] XERS&/OR INC INC RX CONT ECG TRCG ONLY MYOCARDIA 01113 [facility] L SPECT 7 [facility] MULTIPLE INC INC STUDIES ECHO 75901 [facility] TTHRC R-T 7 [facility] 2D INC INC W/WOM-MOD E COMPL SPEC&COLR D LIPID 02358 [facility] PANEL 7 [facility] INC INC HEPATIC 20455 [facility] FUNCTION 7 [facility] [place] [address] MAR[facility] FREE 7 [facility] [place] [address] [facility] THYROID 7 [facility] STIMULATI INC INC NG HORMONE TSH BASIC 40711 [facility] METABOLIC 7 [facility] PANEL INC INC CALCIUM TOTAL COLLECTIO 66498 [facility] N VENOUS 7 [facility] BLOOD INC INC VENIPUNCT URE ECG 00432 [facility] B[facility] ROUTINE 7 [facility] ECG INC INC W/LEAST 12 LDS TRCG ONLY W/O I&R ECG 63610 [facility] ROUTINE 7 [facility] ECG INC INC W/LEAST 12 LDS TRCG ONLY W/O I&R CREATINE 59719 [facility] KINASE 7 [facility] TOTAL INC INC ECG 22886 [facility] BESSON ROUTINE 7 [facility] W/LEAST P 12 LDS I&[place] [address] [facility] TROPONIN 7 [facility] QUANTITAT INC INC KURT BLOOD 70845 [facility] COUNT 7 [facility] COMPLETE INC INC AUTO&AUTO DIFRNTL WBC RADIOLOGI 41915 [facility] C EXAM 7 MEDICAL CHEST 2 IMAGING VIEWS ASS FRONTAL&L ATERAL CREATINE 40862 [facility] KINASE MB 7 [facility] H[facility] FRACTION INC INC ONLY COMPREHEN 92124 [facility] SIVE 7 [facility] METABOLIC INC INC PANEL SUSCEPTIB 71179 [facility] LTY STDY 7 [facility] ANTIMICRB INC INC IAL MICRO/AGA R DILUTJ CULTURE 62717 [facility] BACTERIAL 7 [facility] INC INC QUANTTATI VE COLONY COUNT URINE CULTURE 09491 [facility] BCT 7 [facility] ISOL&PRSM INC INC PTV ID ISOLATE EA URINE URNLS DIP 95292 [facility] 7 [facility] STICK/TAB INC INC LET RGNT AUTO W/O MICROSCOP Y URINLS 55138 A Jasmyne PARHAMLA DIP 6 NICCI MARINO JEA STICK/TAB PSC LET REAGNT NON-AUTO MICRSCPY HEMOGLOBI 78990 A Jasmyne BAKER BRYCE N 6 NICCI MARINO GLYCOSYLA PSC LORIE A1C LIPID 96105 A Jasmyne BAKER BRYCE PANEL 6 NICCI MARINO PSC COLLECTIO 72104 A Jasmyne WU N VENOUS 6 NICCI MARINO BLOOD PSC VENIPUNCT URE COMPREHEN 19516 [facility] 5 DIAGNOSTI DIAGNOSTI METABOLIC CS CS PANEL BLOOD 79067 A Jasmyne BAKER BRYCE COUNT 5 NICCI MARINO COMPLETE PSC AUTO&AUTO DIFRNTL WBC OPHTH 80461 [facility] 5 ANG ANG XM&EVAL COMPRHNSV ESTAB PT 1/> DESTRUCTI 07870 [facility] SUZIE ON BENIGN 5 MATTY MEAGAN LESIONS 15/> DESTRUCTI 02492 [facility] SUZIE ON BENIGN 5 MATTY MEAGAN LESIONS 15/> RADEX 44465 [place] JUANA FOOT 5 MEDICAL ALAYNA COMPLETE IMAGING MINIMUM 3 [place] [address] [facility] STREPTOCO 5 [facility] CCUS INC INC GROUP A CUL BACT 44620 [facility] XCPT 5 [facility] URINE INC INC BLOOD/STO OL AEROBIC ISOL COLONOSCO 42531 [place] SUZANNE PY 5 MEDICAL MARY W/BIOPSY SERV SINGLE/[place] [address] [facility], PRICE SURG 5 [facility] PATHOLOGY GROSS&ELLEN ROSCOPIC EXAM RADIOLOGI 96648 ENE COLECHER C 5 MEDICAL ALAYNA EXAMINATI IMAGING ON KNEE 3 ASS VIEWS RADEX 28277 [facility] HAND 5 [facility] MINIMUM 3 INC INC VIEWS COMPREHEN 67042 [facility] B[facility] SIVE 4 [facility] METABOLIC INC INC PANEL ECG 97492 [facility] ROUTINE 4 [facility] ECG INC INC W/LEAST 12 LDS TRCG ONLY W/O I&R RADIOLOGI 75281 [facility] C EXAM 4 [facility] CHEST 2 INC INC VIEWS FRONTAL&[place] [address] [facility] B[facility] TROPONIN 4 [facility] QUANTITAT INC INC KURT BLOOD 30454 [facility] COUNT 4 [facility] COMPLETE INC INC AUTO&AUTO DIFRNTL WBC ECG 49814 [facility] COTA ROUTINE 4 [facility] W/LEAST P 12 LDS I&R ONLY CANE INCL E0100 M[facility]IAM PINEDA CANES 4 HOME HOME ALL MEDICAL MEDICAL MATERIAL EQUIPME EQUIPME ADJUSTBLE /FIX W/TIP RADEX 92933 [facility] HAND 4 [facility] MINIMUM 3 INC INC VIEWS Encounters Encounter Start End Date Code Location Performer Type Date OFFICE 35223 A C MICHA OUTPATIEN 7 7 NICCI MARINO T VISIT PSC 15 MINUTES [facility]OSPITAL [facility] - 7 7 [facility] OUTPATIEN INC T OFFICE 26551 A C MARIAELENA OUTPATIEN 7 7 NICCI MARINO T VISIT PSC 15 MINUTES OFFICE 63055 A C MARIAELENA OUTPATIEN 7 7 NICCI MARINO T VISIT PSC 15 MINUTES OFFICE 30891 A Jasmyne BAKER OUTPATIEN 7 7 NICCI MARINO T VISIT PSC 15 MINUTES OFFICE 71208 A C OLIVIA OUTPATIEN 7 7 NICCI MARINO T VISIT PSC [address]ES [address] [facility] SAL GUTIERREZ 7 7 PHYSICIAN A T VISIT GROUP 25 MINUTES HOSPITAL [facility] - 7 7 [facility] OUTPATIEN INC T [facility] - 7 7 [facility] OUTPATIEN INC T HOSPITAL [facility] - 7 7 [facility] OUTPATIEN INC T HOSPITAL [facility] - 7 7 [facility] OUTPATIEN INC T EMERGENCY 56565 JOSE REYNOLDS DEPT 7 7 PHYSICIAN U VISIT S, [facility] HIGH SEVERITY& THREAT FUNJ EMERGENCY 83353 [facility] 7 7 [facility] DEPARTMEN [facility] T VISIT MODERATE SEVERITY OFFICE 66171 A Jasmyne GUTIERREZ 7 7 NICCI MARINO T VISIT PSC 15 MINUTES OFFICE 14020 [facility] GUTIERREZ 7 7 MEM [facility] T VISIT 5 INC MINUTES HOSPITAL [facility] - 7 7 [facility] OUTPATIEN INC T OFFICE 89859 A C MARIAELENA OUTPATIEN 6 6 NICCI MARTINO T VISIT PSC 15 MINUTES OFFICE 40617 A Jasmyne FERRELL OUTPATIALONDRA 6 6 NICCI MARTINO T VISIT PSC 15 MINUTES OFFICE 48080 A Jasmyne WU OUTPATIEN 6 6 NICCI MARINO T VISIT PSC 25 MINUTES HOSPITAL [facility] - 6 6 [facility] OUTPATIEN INC T EMERGENCY 91153 JOSE BOOTH 6 6 PHYSICIAN DEPARTMEN S, [facility] T VISIT MODERATE SEVERITY EMERGENCY 68677 [facility] 6 6 [facility] DEPARTMEN INC T VISIT LIMITED/M INOR PROB OFFICE 24192 A Jasmyne WU OUTPATIEN 5 5 NICCI MARINO T VISIT PSC 25 MINUTES HOSPITAL [facility] - 5 5 [facility] OUTPATIEN INC T OFFICE 40756 LORI LARSEN OUTPATIEN 5 5 MATTY MEAGAN T NEW 30 MINUTES EMERGENCY 15681 JOSE REYNOLDS 5 5 PHYSICIAN Josey LOPEZ [facility] S, [facility] T VISIT MODERATE SEVERITY EMERGENCY 67576 [facility] 5 5 [facility] T VISIT LOW/MODER SEVERITY HOSPITAL [facility] - 5 5 [facility] OUTPATIEN [facility] T EMERGENCY 67322 JOSE Huffman 5 5 PHYSICIAN [facility], [facility] T VISIT MODERATE SEVERITY HOSPITAL [facility] - 5 5 [facility] OUTPATIEN [facility] T HOSPITAL [facility]IAM - 5 5 [facility] OUTPATIEN [facility] OFFICE 46184 Abelardo WU OUTPATIALONDRA 5 5 NICCI MARINO T VISIT PSC 25 MINUTES EMERGENCY 29307 [facility] T VISIT LOW/MODER SEVERITY HOSPITAL [facility] - 5 5 [facility] OUTPATIEN [facility] HOSPITAL MARIAM - 4 4 [facility] OUTPATIEN INC T EMERGENCY 26064 [facility] DEPT 4 4 LUCY VISIT EMERGENCY HIGH PHYS SEVERITY& THREAT FUN EMERGENCY 23848 [facility] 4 4 [facility] T VISIT MODERATE SEVERITY OFFICE 24807 FIELD AMB FIELD AMB OUTPATIEN 4 4 T VISIT 15 MINUTES OFFICE 26259 KILPELA KILPELA OUTPATIEN 4 4 GUNNER MARTINO T VISIT 10 MINUTES OFFICE 53533 FIELD AMB FIELD AMB OUTPATIEN 4 4 T NEW 45 MINUTES HOSPITAL [facility] - 4 4 [facility] OUTPATIEN INC T EMERGENCY 71363 AVELINO YOU 4 4 [facility] T VISIT MODERATE SEVERITY EMERGENCY 82332 [facility] 4 4 [facility] T VISIT LOW/MODER SEVERITY
--- OUTSIDE RECORDS SUMMARY | 2017-08-30 12:24 | External Medical Summary Rpt | CCD ---
Author Author , JEROMYKELLY Organization [facility] Address Unknown Phone [email or web address] Care Team Providers Care Human Resources Admin Name Role Phone A Jasmyne GRAJEDA MD [...] AMB Unavailable Unavailable MUSE, [facility] Unavailable Unavailable [facility] Unavailable Unavailable INC, [facility] Unavailable Unavailable HOSPITAL P, [facility], Unavailable Unavailable [facility] Unavailable Unavailable [facility], [facility] KILPELA, KILPELA Unavailable Unavailable [...] 2016 Problems Code Diagnosis DOS Provider Status [id number] PAIN IN 07-26-2017 [facility] [id number] PAIN IN 07-26-2017 [facility] G4733 OBSTRUCTIVE 07-07-2017 [facility] SLEEP HOME APNEA ADULT MEDICAL PEDIATRIC EQUIPME M1990 UNSPECIFIED 06-01-2017 A Jasmyne GRAJEDA MD [facility] OSTEOARTHRI TIS UNSPECIFIED SITE I85061 PAIN IN 04-21-2017 A Jasmyne GRAJEDA JOINTS OF PSC RIGHT HAND V38301 PAIN IN 04-21-2017 A Jasmyne GRAJEDA JOINTS KELSEY MARINO [facility] LEFT HAND Z6825 BODY MASS 04-21-2017 A Jasmyne GRAJEDA INDEX BMI [facility] 25.0-25.9 ADULT E785 HYPERLIPIDE 02-24-[address] [facility] OLIVIA PHYSICIAN UNSPECIFIED GROUP I10 ESSENTIAL 02-24-[address] [facility] PRIMARY PHYSICIAN HYPERTENSIO GROUP N K219 GASTRO-ESOP 02-24-2017 [facility] REFLUX PHYSICIAN DISEASE GROUP WITHOUT ESOPHAGITIS R0602 SHORTNESS 02-24-[address] [facility] OF BREATH PHYSICIAN GROUP R0683 SNORING 02-24-[address] [facility] R0789 OTHER CHEST 02-24-[address] [facility] PAIN PHYSICIAN GROUP R635 ABNORMAL 02-24-[address] [facility] WEIGHT GAIN PHYSICIAN GROUP Z8249 FAMILY HX 02-24-[address] [facility] ISCHEMIC PHYSICIAN HRT DZ OTH GROUP DZ CIRC SYSTEM R079 CHEST PAIN 02-21-2017 [facility] UNSPECIFIED [facility] INC R9431 ABNORMAL 02-09-2017 [facility] ELECTROCARD [facility] IOGRAM INC T76896 OTHER LONG 02-03-2017 [facility] P DRUG THERAPY N390 URINARY 01-18-2017 A Jasmyne GRAJEDA TRACT [facility] INFECTION SITE NOT SPECIFIED M6530 TRIGGER 05-05-2016 A Jasmyne GRAJEDA FINGER PSC UNSPECIFIED FINGER R3915 URGENCY OF 04-22-2016 A Jasmyne GRAJEDA URINATION PSC R42 DIZZINESS 04-22-2016 A Jasmyne QUIROZ PSC GIDDINESS J040 ACUTE 01-13-2016 A Jasmyne GRAJEDA LARYNGITIS PSC R358 OTHER 01-13-2016 A Jasmyne GRAJEDA POLYURIA PSC J209 ACUTE 01-10-2016 [facility]ONCHITIS [facility] UNSPECIFIED INC J40 BRONCHITIS 01-10-2016 [facility] PHYSICIANS, SPECIFIED PLLC ACUTE OR CHRONIC E780 PURE 09-29-2015 [facility]PERCHOLES [facility] TEROLEMIA 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 W80442 ENCOUNTER 09-29-2015 [facility] FOR [facility] PREPROCEDUR AL CARIOVASCUL AR EXAM H524 PRESBYOPIA 09-25-2015 [facility] ANG B070 PLANTAR 09-18-2015 [facility] MATTY WART [id number] PAIN IN 09-18-2015 [facility] MATTY RIGHT FOOT I890 LYMPHEDEMA 08-21-2015 [facility] MATTY NOT ELSEWHERE CLASSIFIED M2570 OSTEOPHYTE 08-21-2015 [facility] UNSPECIFIED [facility] JOINT INC R936 ABNORMAL 08-21-2015 [facility] IMAGING OF LIMBS C92486 CELLULITIS 08-20-2015 [facility] OF RIGHT PHYSICIANS, TOE PLLC [id number] UNS OPEN 08-20-2015 [facility] WOUND UNS PHYSICIANS, TOES PLLC W/DAMAGE NAIL INITIAL 4019 UNSPECIFIED 06-16-2015 [facility] ESSENTIAL [facility] HYPERTENSIO INC N 4659 ACUTE URIS 06-16-2015 [facility] OF PHYSICIANS, UNSPECIFIED PLLC SITE 2113 BENIGN 03-12-2015 [facility]M [facility] 2352 NEOPLASM 03-12-2015 [facility] UNCERTAIN [facility] BEHAVIOR INC STOMACH INTEST&RECT 32333 OTHER 03-12-2015 [facility] DISORDER OF INTESTINES V7651 SPECIAL 03-12-2015 [facility] SCREENING SERV FOR [facility] MALIGNANT NEOPLASMS COLON 01646 OSTEOARTHRO 02-04-2015 [facility] UNSPEC MEDICAL WHETHER IMAGING ASS GEN/LOC LOWER LEG 80906 UNSPECIFIED 02-04-2015 [facility] ARTHROPATHY INC , LOWER LEG 69708 PAIN IN 02-04-2015 [facility] JOINT, MEDICAL LOWER LEG IMAGING ASS 71704 OTHER 12-29-2014 [facility] DISORDERS [facility] SYNOVIUM INC TENDON AND BURSA OTHER 7295 PAIN IN 12-29-2014 [facility] SOFT MEDICAL TISSUES OF IMAGING ASS LIMB 24038 CHEST PAIN 08-19-2014 [facility] UNSPECIFIED [facility]ICAL IMAGING ASS 74831 OTHER CHEST 08-19-2014 [facility] PH[facility] V148 PERSONAL 08-19-2014 [facility] P SPEC MEDICINAL AGTS 9597 INJURY 03-04-2014 [facility] OTHER&UNSPE CIFIED KNEE LEG ANKLE&FOOT 7354 OTHER 02-14-2014 [facility] HAMMER TOE HOME MEDICAL EQUIPME 7812 ABNORMALITY 02-14-2014 [facility] OF GAIT HOME MEDICAL EQUIPME 02024 TRIGGER 02-08-2014 MARIAELENA MARTINO FINGER 2724 OTHER AND 02-05-2014 FIELD AMB UNSPECIFIED HYPERLIPIDE OLIVIA 24239 OTHER 02-05-2014 [facility] CONGENITAL DEFORMITY OF FEET OTHER 37605 RECURRENT 12-11-2013 [facility] DISLOCATION [facility] OF HAND INC JOINT 20733 SPRAIN AND 12-11-2013 AVELINO WARD STRAIN OF [...] 09 10 60 30 00 WA Ac DE 49 -1 -0 .0 00 L- ti [...] 07 08 60 30 00 WA Ac DE 49 -1 -1 .0 00 L- ti [...] LO 54 06 07 30 30 00 AK Ac VA 45 -0 -0 .0 00 L- ti ST 80 9- 7- 00 07 MA ve AT 93 20 20 47 RT IN 71 17 17 60 0 68 PH 20 AR MA MG CY TA #5 BL 91 ET LO 68 06 07 30 30 00 AK Ac SA 18 -1 -0 .0 00 L- ti RT 00 2- 7- 00 07 MA ve AN 21 20 20 48 RT -H [address] 9 66 PH Z AR 10 MA 0- CY 25 #5 MG 91 TA B OM 60 05 06 30 30 00 AK Ac EP 50 -2 -2 .0 00 L- ti RA 50 6- 3- 00 07 MA ve ZO 14 20 20 47 RT LE 60 17 [address] AR MA 40 CY MG #5 91 CA PS UL E LO 68 05 06 30 30 00 AK Ac VA 18 -1 -0 .0 00 L- ti ST 00 2- 9- 00 07 MA ve AT 46 20 20 47 RT IN 80 17 17 60 7 68 PH 20 AR MA MG CY TA #5 BL 91 ET LO 68 05 06 30 30 00 AK Ac SA 18 -1 -0 .0 00 L- ti RT 00 2- 9- 00 07 MA ve AN 21 20 20 48 RT -H [address] 9 66 PH Z AR 10 MA 0- CY 25 #5 MG 91 TA B OM 60 04 05 30 30 00 AK Ac EP 50 -2 -2 .0 00 L- ti RA 50 9- 6- 00 07 MA ve ZO 14 20 20 47 RT LE 60 17 [address] AR MA 40 CY MG #5 91 CA PS UL E LO 68 04 05 30 30 00 AK Ac SA 18 -1 -1 .0 00 L- ti RT 00 3- 2- 00 07 MA ve AN 21 20 20 48 RT -H [address] 9 66 PH Z AR 10 MA 0- CY 25 #5 MG 91 TA B LO 54 04 05 30 30 00 AK Ac VA 45 -1 -0 .0 00 [...] LI 54 03 04 30 30 00 AK Ac SI 45 -1 -0 .0 00 L- ti NO 80 3- 7- 00 07 MA ve DE 99 20 20 47 RT IL 61 17 17 59 0 06 PH 20 AR MA MG CY TA #5 BL 91 ET DORANTES 65 03 03 20 10 00 AK Ac LF 86 -0 -3 .0 00 L- ti AM 20 3- 1- 00 07 MA ve ET 42 20 20 47 RT HO 00 17 17 42 XA 5 04 PH ZO AR LE MA -T CY MP #5 DS 91 TA BL ET Procedures Procedure DOS Code Location Performer Comment RADEX 86007 [facility] HAND 7 [facility] 3 [facility] INC VIEWS COLLECTIO 09743 Abelardo C MICHA N VENOUS 7 NICCI [...] EQUIPME EQUIPME DEVC W/WO HEAD STRAP POLYSOM [address] [facility] PAVEZ 6/>YRS 7 PHYSICIAN SLEEP 4/> S GROUP ADDL MARGE ATTND UNCLASSIF J3490 [facility] IED DRUGS 7 [facility] INC INC CV STRS 01427 [facility] TST 7 [facility] XERS&/OR INC INC RX CONT ECG TRCG ONLY MYOCARDIA 31050 [facility] L SPECT 7 [facility] MULTIPLE INC INC STUDIES ECHO 54878 [facility] TTHRC R-T 7 [facility] 2D INC INC W/WOM-MOD E COMPL SPEC&COLR D LIPID 01495 [facility] PANEL 7 [facility] INC INC HEPATIC 17920 AMRIAM BECERRA FUNCTION 7 [facility] [place] [address] [facility] FREE 7 [facility] [place] [address] [facility] THYROID 7 [facility] STIMULATI INC INC NG HORMONE TSH BASIC 79422 [facility] METABOLIC 7 [facility] PANEL INC INC CALCIUM TOTAL COLLECTIO 83258 [facility] N VENOUS 7 [facility] BLOOD INC INC VENIPUNCT URE ECG 16494 [facility] ROUTINE 7 [facility] ECG INC INC W/LEAST 12 LDS TRCG ONLY W/O I&R ECG 20195 [facility] ROUTINE 7 [facility] ECG INC INC W/LEAST 12 LDS TRCG ONLY W/O I&R CREATINE 29915 [facility] KINASE 7 [facility] TOTAL INC INC ECG 55885 [facility] BESSON ROUTINE 7 [facility] W/LEAST P 12 LDS I&[place] [address] [facility] TROPONIN 7 [facility] QUANTITAT INC INC KURT BLOOD 93726 [facility] COUNT 7 [facility] COMPLETE INC INC AUTO&AUTO DIFRNTL WBC RADIOLOGI 33457 [facility] C EXAM 7 MEDICAL CHEST 2 IMAGING VIEWS ASS FRONTAL&L ATERAL CREATINE 97596 [facility] KINASE MB 7 [facility] H[facility] FRACTION INC INC ONLY COMPREHEN 94493 [facility] SIVE 7 [facility] METABOLIC INC INC PANEL SUSCEPTIB 71250 [facility] LTY STDY 7 [facility] ANTIMICRB INC INC IAL MICRO/AGA R DILUTJ CULTURE 57744 [facility] BACTERIAL 7 [facility] INC INC QUANTTATI VE COLONY COUNT URINE CULTURE 47889 [facility] BCT 7 [facility] ISOL&PRSM INC INC PTV ID ISOLATE EA URINE URNLS DIP 63879 [facility] 7 [facility] STICK/TAB INC INC LET RGNT AUTO W/O MICROSCOP Y URINLS 50598 A Jasmyne PARHAMLA DIP 6 NICCI MARINO JEA STICK/TAB PSC LET REAGNT NON-AUTO MICRSCPY HEMOGLOBI 13753 A Jasmyne BAKER BRYCE N 6 NICCI MARINO GLYCOSYLA PSC LORIE A1C LIPID 93551 A Jasmyne BAKER BRYCE PANEL 6 NICCI MARINO PSC COLLECTIO 66826 A Jasmyne WU N VENOUS 6 NICCI MARINO BLOOD PSC VENIPUNCT URE COMPREHEN 22273 [facility] S[facility] 5 DIAGNOSTI DIAGNOSTI METABOLIC CS CS PANEL BLOOD 40559 A Jasmyne BAKER BRYCE COUNT 5 NICCI MARINO COMPLETE PSC AUTO&AUTO DIFRNTL WBC OPHTH 50087 [facility] 5 ANG ANG XM&EVAL COMPRHNSV ESTAB PT 1/> DESTRUCTI 49981 [facility] SUZIE ON BENIGN 5 MATTY MEAGAN LESIONS 15/> DESTRUCTI 01353 [facility] SUZIE ON BENIGN 5 MATTY MEAGAN LESIONS 15/> RADEX 87652 [place] JUA[place] FOOT 5 MEDICAL ALAYNA COMPLETE IMAGING MINIMUM 3 [place] [address] [facility] STREPTOCO 5 [facility] CCUS INC INC GROUP A CUL BACT 19629 [facility] XCPT 5 [facility] URINE INC INC BLOOD/STO OL AEROBIC ISOL COLONOSCO 90363 [place] SUZANNE PY 5 MEDICAL MARY W/BIOPSY SERV SINGLE/[place] [address] [facility] PRICE SURG 5 [facility] PATHOLOGY GROSS&ELLEN ROSCOPIC EXAM RADIOLOGI 26551 ENE COLECHER C 5 MEDICAL ALAYNA EXAMINATI IMAGING ON KNEE 3 ASS VIEWS RADEX 90528 [facility] HAND 5 [facility] MINIMUM 3 INC INC VIEWS COMPREHEN 51770 [facility] SIVE 4 [facility] METABOLIC INC INC PANEL ECG 64910 [facility] ROUTINE 4 [facility] ECG INC INC W/LEAST 12 LDS TRCG ONLY W/O I&R RADIOLOGI 51763 [facility] C EXAM 4 [facility] CHEST 2 INC INC VIEWS FRONTAL&[place] [address] [facility] TROPONIN 4 [facility] QUANTITAT INC INC KURT BLOOD 99100 [facility] COUNT 4 [facility] COMPLETE INC INC AUTO&AUTO DIFRNTL WBC ECG 87333 [facility] COTA ROUTINE 4 [facility] W/LEAST P 12 LDS I&R ONLY CANE INCL E0100 M[facility] PINEDA CANES 4 HOME HOME ALL MEDICAL MEDICAL MATERIAL EQUIPME EQUIPME ADJUSTBLE /FIX W/TIP RADEX 75768 [facility] HAND 4 [facility] MINIMUM 3 INC INC VIEWS Encounters Encounter Start End Date Code Location Performer Type Date OFFICE 25708 A C MICHA OUTPATIEN 7 7 NICCI MARINO T VISIT PSC 15 MINUTES HOSPITAL [facility] - 7 7 [facility] OUTPATIEN INC T OFFICE 59014 A C MARIAELENA OUTPATIEN 7 7 NICCI MARINO T VISIT PSC 15 MINUTES OFFICE 50705 A C MARIAELENA OUTPATIEN 7 7 NICCI MARINO T VISIT PSC 15 MINUTES OFFICE 43764 A Jasmyne BAKER OUTPATIEN 7 7 NICCI MARINO T VISIT PSC 15 MINUTES OFFICE 01122 A C OLIVIA OUTPATIEN 7 7 NICCI MARINO T VISIT PSC [address] [facility] SAL GUTIERREZ 7 7 PHYSICIAN A T VISIT GROUP 25 MINUTES HOSPITAL [facility] - 7 7 [facility] OUTPATIEN INC T HOSP[facility] - 7 7 [facility] OUTPATIEN INC T HOSPITAL [facility] - 7 7 [facility] OUTPATIEN INC T HOSPITAL [facility] - 7 7 [facility] OUTPATIEN INC T EMERGENCY 72631 JOSE REYNOLDS DEPT 7 7 PHYSICIAN U VISIT S, [facility] HIGH SEVERITY& THREAT FUNJ EMERGENCY 13290 [facility] 7 7 [facility] DEPARTMEN [facility] T VISIT MODERATE SEVERITY OFFICE 20688 A Jasmyne GUTIERREZ 7 7 NICCI MARINO T VISIT PSC 15 MINUTES OFFICE 84601 [facility] GUTIERREZ 7 7 MEM HOS[facility] T VISIT 5 INC MINUTES HOSPITAL [facility] - 7 7 [facility] OUTPATIEN INC T OFFICE 33609 A C MARIAELENA OUTPATIEN 6 6 NICCI MARTINO T VISIT PSC 15 MINUTES OFFICE 27927 A Jasmyne FERRELL OUTPATIALONDRA 6 6 NICCI MARTINO T VISIT PSC 15 MINUTES OFFICE 72562 A Jasmyne WU OUTPATIEN 6 6 NICCI MARINO T VISIT PSC 25 MINUTES HOSPITAL [facility] - 6 6 [facility] OUTPATIEN INC T EMERGENCY 53994 JOSE BOOTH 6 6 PHYSICIAN DEPARTMEN S, [facility] T VISIT MODERATE SEVERITY EMERGENCY 98802 [facility] 6 6 [facility] DEPARTMEN INC T VISIT LIMITED/M INOR PROB OFFICE 56143 A Jasmyne WU OUTPATIEN 5 5 NICCI MARINO T VISIT PSC 25 MINUTES HOSPITAL [facility] - 5 5 [facility] OUTPATIEN INC T OFFICE 07214 LORI LARSEN OUTPATIEN 5 5 MATTY MEAGAN T NEW 30 MINUTES EMERGENCY 78757 JOSE REYNOLDS 5 5 PHYSICIAN Josey LOPEZ [facility] S, [facility] T VISIT MODERATE SEVERITY EMERGENCY 92088 [facility] 5 5 [facility] T VISIT LOW/MODER SEVERITY HOSPITAL [facility] - 5 5 [facility] OUTPATIEN [facility] T EMERGENCY 90706 JOSE Huffman 5 5 PHYSICIAN [facility], [facility] T VISIT MODERATE SEVERITY HOSPITAL [facility] - 5 5 [facility] OUTPATIEN [facility] T HOSPITAL [facility] - 5 5 [facility] OUTPATIEN [facility] OFFICE 80671 Abelardo WU OUTPATIALONDRA 5 5 NICCI MARINO T VISIT PSC 25 MINUTES EMERGENCY 06429 [facility] T VISIT LOW/MODER SEVERITY HOSPITAL [facility] - 5 5 [facility] OUTPATIEN [facility] HOSPITAL MARIAM - 4 4 [facility] OUTPATIEN INC T EMERGENCY 80464 [facility] DEPT 4 4 LUCY VISIT EMERGENCY HIGH PHYS SEVERITY& THREAT FUN EMERGENCY 78940 [facility] 4 4 [facility] T VISIT MODERATE SEVERITY OFFICE 01802 FIELD AMB FIELD AMB OUTPATIEN 4 4 T VISIT 15 MINUTES OFFICE 80227 KILPELA KILPELA OUTPATIEN 4 4 GUNENR MARTINO T VISIT 10 MINUTES OFFICE 75509 FIELD AMB FIELD AMB OUTPATIEN 4 4 T NEW 45 MINUTES HOSPITAL [facility] - 4 4 [facility] OUTPATIEN INC T EMERGENCY 01611 AVELINO YOU 4 4 [place] [facility] T VISIT MODERATE SEVERITY EMERGENCY 74515 [facility] 4 4 [facility] T VISIT LOW/MODER SEVERITY
--- OUTSIDE RECORDS SUMMARY | 2017-08-30 12:25 | External Medical Summary Rpt | CCD ---
Author Author , [facility] Organization [facility] Address Unknown Phone [email or web address] Immunization Name Date Rout CVX Reac Dose Comm Prov Is Faci e tion ent ider Refu lity Give sed n Td 11-3 9 999 Hist H134 No H134 (vikas 0-19 oric lt), 98 al Info adso rmat rbed ion - Sour ce Unsp ecif ied
--- OUTSIDE RECORDS SUMMARY | 2017-08-30 12:25 | External Medical Summary Rpt ---
Author Author CHAPITO Sims, [facility]O Sims Organization [employer] Address Unknown Phone Unavailable
--- OUTSIDE RECORDS SUMMARY | 2017-08-30 12:25 | External Medical Summary Rpt | CCD ---
Author Author , [facility]O Organization [facility] Address Unknown Phone [email or web address] Immunization Name Date Rout CVX Reac Dose Comm Prov Is Faci e tion ent ider Refu lity Give sed n Td 11-3 9 999 Hist H134 No H134 (vikas 0-19 oric lt), 98 al Info adso rmat rbed ion - Sour ce Unsp ecif ied
[2017-08-30] MEDS ORDERED: MEDROL 4MG. DOSE4 MG PO (13:10)
--- NOTE | 2017-08-30 13:14 | Urgent Treatment Center Report ---
History of Present Issue Date/Time Seen by Provider 08/30/17 1304 Visit Reason Pt arrived:Walked Presenting Problem:PT C/O PREVIOUS DX OF ARTHRITIS IN HIS LT HAND. PT STATES THAT IT IS FLAIRING UP AGAIN AND THE NEW MED PRESCRIBED BY HIS PCP HASN'T BEEN HELPING Location if Accident: Onset of symptoms date/time:/ or onset unknown for:MEDICAL HX UNKNOWN Have you (or family members/close friends) recently traveled outside the [place]? N If Yes, where/when: Have you had exposure to infectious disease within the past month? TB? Other? Specify: Patient states that he is currently being treated by family doctor for Arthritis and was recently started on medication for it State that medication is not working so he came in here to day to see if we can help him because he thinks he is having a flare up State that he has an appointment coming up with the Lock Operator but his hands are hurting today ALLERGIES Coded Allergies: codeine (Mild, 08/30/17) Home Medications Reported Medications Lovastatin 20 MG PO DAILY #30 LISINOPRIL (Lisinopril) 20 MG PO DAILY History Medical History General CAD? No Angina: No PA: No Hypertension? Yes Hyperlipidemia? Yes CHF? No DVT? No PE? No COPD? No Asthma? No Anemia? No GERD? No Gastric ulcers? No GI Bleed? No Hernia? No Thyroid Problems? No Hypothyroidism? No CVA? No Seizures? No Diabetes? No Insulin Dependent: No Insulin Pump: No Home FSBS? No Renal Insuffiency? No UTI? No Stones? No BPH? No GB Disease: No Nephritic Syndrome? No Asplenia? No Hepatitis? No Sickle Cell Disease? No Arthritis? No Migraines? No Cataracts? No Glaucoma? No MRSA? No HIV? No TB? No Anxiety? No Depression? No Cancer? No More? No Immunization HX DT/Tetanus 5-10 YRS Flu NEVER Pneumonia NEVER Surgical Hx Previous Surgery?N Family History Family HX Diabetes Yes CAD No Hypertension Yes Hyperlipidemia Yes Cancer Yes TB No Social History Smoking Hx Smoker: Never Smoker Tobacco: No Alcohol Alcohol: No Review of Systems All Other Systems Reviewed and Negative Physical Exam Vital Signs Vital Signs Date Time Temp Pulse Resp B/P Pulse O2 O2 Flow FiO2 Ox Delivery Rate 08/30 1233 97.9 89 20 133/85 98 General Appearance normal appearance, WD/WN, no apparent distress Respiratory Status Yes: trachea midline, chest symmetrical, non tender chest. No: respiratory distress. Cardiovascular normal exam, regular rate/rhythm Extremities swelling, Has appointment that was set up by family doctor for park activities coordinator for further evaluation for condition, good pulses good cap refill Neurologic alert, normal exam, oriented x 3 Medical Decision Making LABS/Meds/Orders Pt receiving controlled substance in ED? No Progress [facility] Progress Notes Comment Called Clinic and discussed patient and treatment options with Jenna Smallwood advised to give patient Medrol dose pack and have him follow up with them next week in the clinic Departure Departure Time of Disposition 1308 Disposition DC Home or Self Care(routine) Clinical Impression Primary Impression: Arthritis Condition STABLE Referrals Linden Baer MD (Family): 3 Days-Call Office Patient Instructions Arthritis (Alternative Therapy) Additional Instructions Follow up with family doctor in 2-3 if no improvement in symptoms Keep appointment with Rhemotologist as scheduled by family doctor REturn if needed Follow up next week with family doctor to access treatment Discharge Counseling Counseled pt/family regarding diagnosis, medications/RX, home care, follow up needs Prescriptions Current Visit Scripts Methylprednisolone (Medrol Dose [place]) 4 MG PO UD #1 WESTON TAKE DIRECTED ON PACKAGING at 6962
--- NOTE | 2017-08-30 13:14 | Urgent Treatment Center Report ---
History of Present Issue Date/Time Seen by Provider 08/30/17 1304 Visit Reason Pt arrived:Walked Presenting Problem:PT C/O PREVIOUS DX OF ARTHRITIS IN HIS LT HAND. PT STATES THAT IT IS FLAIRING UP AGAIN AND THE NEW MED PRESCRIBED BY HIS PCP HASN'T BEEN HELPING Location if Accident: Onset of symptoms date/time:/ or onset unknown for:MEDICAL HX UNKNOWN Have you (or family members/close friends) recently traveled outside the [place]? N If Yes, where/when: Have you had exposure to infectious disease within the past month? TB? Other? Specify: Patient states that he is currently being treated by family doctor for Arthritis and was recently started on medication for it State that medication is not working so he came in here to day to see if we can help him because he thinks he is having a flare up State that he has an appointment coming up with the Thumb Sewer but his hands are hurting today ALLERGIES Coded Allergies: codeine (Mild, 08/30/17) Home Medications Reported Medications Lovastatin 20 MG PO DAILY #30 LISINOPRIL (Lisinopril) 20 MG PO DAILY History Medical History General CAD? No Angina: No DE: No Hypertension? Yes Hyperlipidemia? Yes CHF? No DVT? No PE? No COPD? No Asthma? No Anemia? No GERD? No Gastric ulcers? No GI Bleed? No Hernia? No Thyroid Problems? No Hypothyroidism? No CVA? No Seizures? No Diabetes? No Insulin Dependent: No Insulin Pump: No Home FSBS? No Renal Insuffiency? No UTI? No Stones? No BPH? No GB Disease: No Nephritic Syndrome? No Asplenia? No Hepatitis? No Sickle Cell Disease? No Arthritis? No Migraines? No Cataracts? No Glaucoma? No MRSA? No HIV? No TB? No Anxiety? No Depression? No Cancer? No More? No Immunization HX DT/Tetanus 5-10 YRS Flu NEVER Pneumonia NEVER Surgical Hx Previous Surgery?N Family History Family HX Diabetes Yes CAD No Hypertension Yes Hyperlipidemia Yes Cancer Yes TB No Social History Smoking Hx Smoker: Never Smoker Tobacco: No Alcohol Alcohol: No Review of Systems All Other Systems Reviewed and Negative Physical Exam Vital Signs Vital Signs Date Time Temp Pulse Resp B/P Pulse O2 O2 Flow FiO2 Ox Delivery Rate 08/30 1233 97.9 89 20 133/85 98 General Appearance normal appearance, WD/WN, no apparent distress Respiratory Status Yes: trachea midline, chest symmetrical, non tender chest. No: respiratory distress. Cardiovascular normal exam, regular rate/rhythm Extremities swelling, Has appointment that was set up by family doctor for moving consultant for further evaluation for condition, good pulses good cap refill Neurologic alert, normal exam, oriented x 3 Medical Decision Making LABS/Meds/Orders Pt receiving controlled substance in ED? No Progress [facility] Progress Notes Comment Called Clinic and discussed patient and treatment options with Jenna Smallwood advised to give patient Medrol dose pack and have him follow up with them next week in the clinic Departure Departure Time of Disposition 1308 Disposition DC Home or Self Care(routine) Clinical Impression Primary Impression: Arthritis Condition STABLE Referrals Linden Baer MD (Family): 3 Days-Call Office Patient Instructions Arthritis (Alternative Therapy) Additional Instructions Follow up with family doctor in 2-3 if no improvement in symptoms Keep appointment with Rhemotologist as scheduled by family doctor REturn if needed Follow up next week with family doctor to access treatment Discharge Counseling Counseled pt/family regarding diagnosis, medications/RX, home care, follow up needs Prescriptions Current Visit Scripts Methylprednisolone (Medrol Dose [place]) 4 MG PO UD #1 WESTON TAKE DIRECTED ON PACKAGING at 1116
[2017-08-30 13:18] VITALS: BP 133/85
== END 2017-08-30 13:18 | disposition home or self-care (01) ==
LOC: UTC 12:04
DX: M19.042 Primary osteoarthritis, left hand (principal); I10 Essential (primary) hypertension; E78.5 Hyperlipidemia, unspecified; Z79.899 Other long term (current) drug therapy